=== PATIENT | male | born 1955 | race Caucasian/White ===

== ENCOUNTER 2020-10-06 14:52 | Outpatient (CLI) | payer MEDICARE, SELFPAY ==
--- NOTE | ~2020-10-06 | XR_ITS ---
XR hip RT min 2V 10/06/2020 15:11 Indication: Right hip pain Procedure: 3 views right hip Comparison: No prior studies for comparison. Findings: No fracture, subluxation or dislocation. Pelvic rings are grossly intact. Sacral foramen ar e symmetric. No significant soft tissue abnormality. No foreign bodies. Impression: 1: No acute bone or joint abnormality. Reviewed, dictated and finalized at location B. Impression: 1: No acute bone or joint abnormality.
== END 2020-10-06 14:53 | disposition home or self-care (01) ==
LOC: ANHIMG 15:00
PROVIDERS: PCP Family Medicine; Visit Provider Nurse Practitioner Family
DX: M25.551 Pain in right hip (principal)
CPT/HCPCS: 73502

== ENCOUNTER 2021-06-11 11:31 | Outpatient (CLI) | payer MEDICARE, SELFPAY ==
--- NOTE | ~2021-06-11 | CT_ITS ---
EXAMINATION: CT cervical spine wo con DATE: 06/11/2021 12:14 INDICATION: Cervicalgia. Polyneuropathy. TECHNIQUE: Computed tomography (CT) of the cervical spine was performed without intravenous contrast. Automated exposure control and iterative reconstruction technique were employed. The dose-length pro duct was 507.41 mGy-cm. COMPARISON: Cervical spine MR dated 12/22/04. FINDINGS: Alignment is normal. Vertebral body heights are normal. No fracture. There are Schmorl's nodes along the endplates at the C5-C6 and C6-C7 disc spaces. Moderate disc height loss at C5-C6 and C6-C7 and mi ld disc height loss at C4-C5, C7-T1 and T1-T2. This has progressed since the prior study. Cervical so ft tissues are unremarkable. Visualized airway and apices of the lungs are clear. The following disc levels are specifically discussed: C2-C3: There is mild bilateral uncovertebral joint osteoarthritis. There is mild right and moderate left facet joint osteoarthritis. There is no neural foraminal stenosis. There is no central canal milagros nosis. C3-C4: Disc is bulging. There is mild left and minimal right uncovertebral joint osteoarthritis. Ther e is moderate bilateral facet joint osteoarthritis. There is mild bilateral neural foraminal stenosis . There is mild central canal stenosis. C4-C5: Disc is bulging. There is mild bilateral uncovertebral joint osteoarthritis. There is moderate bilateral facet joint osteoarthritis. There is mild right neural foraminal stenosis. There is mild c entral canal stenosis. C5-C6: Disc is bulging and small amount of heterotopic ossification along the posterior longitudinal ligament. There is moderate bilateral uncovertebral joint osteoarthritis. There is left and severe ri ght facet joint osteoarthritis. There is old right neural foraminal stenosis. There is mild central c anal stenosis. C6-C7: Posterior disc osteophyte complex. There is moderate bilateral uncovertebral joint osteoarthri tis. There is moderate left and severe right facet joint osteoarthritis. There is mild bilateral neur al foraminal stenosis. There is mild central canal stenosis. C7-T1: There is mild bilateral uncovertebral joint osteoarthritis. There is severe bilateral facet cezar int osteoarthritis. There is no neural foraminal stenosis. There is no central canal stenosis. IMPRESSION: 1. Moderate cervical spondylosis. Reviewed, dictated and finalized at location A. 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
== END 2021-06-11 11:32 | disposition home or self-care (01) ==
LOC: ANHIMG 11:41
PROVIDERS: PCP Family Medicine; Visit Provider Nurse Practitioner Adult Health
DX: M47.892 Other spondylosis, cervical region (principal)
CPT/HCPCS: 72125

== ENCOUNTER 2021-06-20 10:27 | Emergency (ER) | payer MEDICARE, SELFPAY ==
[2021-06-20 11:12] VITALS: BP 145/75; PULSE 63; RESP 18; TEMP 36.7; O2SAT 98
--- NOTE | 2021-06-20 12:06 | ED.GENADULT ---
HPI - General Adult General Chief complaint: Extremity Injury, Upper Stated complaint: bilateral arm pain Time Seen by Provider: 06/20/21 11:37 Source: patient and RN notes reviewed Mode of arrival: ambulatory Limitations: no limitations History of Present Illness HPI narrative: Patient presents today complaining of bilateral shoulder pain since May 2020. Reports that this pain started after he received his first COVID-19 injection in his left upper arm. States his pain radiates up to his neck and down his arms. Pain was intermittent, but is now pretty constant. He had a CT scan of his, head and chest area 2 weeks ago, but is not yet have the results. He has an appointment in 2 days with his PCP for the results and to follow-up. He currently rates his pain 11/25. Patient does take Dupree 3 times daily as needed for his pain, but these medications have been prescribed from previous packs treatments. He also takes ibuprofen. These medications have not been helpful for this arm and shoulder pain. He has also tried muscle relaxers as well without relief. [facility] to [facility] today seeing if there was anything else we could do for him until he could see his doctor in a couple of days. MD complaint: Bilateral shoulder pain Related Data Home Medications Medication Instructions Recorded Confirmed allopurinol 300 mg PO DAILY 02/20/19 06/20/21 ascorbic acid (vitamin C) [Vitamin 1 g PO DAILY 02/20/19 06/20/21 C] aspirin [Adult Low Dose Aspirin] 81 mg PO DAILY 02/20/19 06/20/21 hydrocodone-acetaminophen 1 tablet PO Q4-6H PRN 02/20/19 06/20/21 lisinopril 40 mg PO DAILY 02/20/19 06/20/21 metoprolol tartrate 100 mg PO BID 02/20/19 06/20/21 simvastatin 20 mg PO DAILY 02/20/19 06/20/21 amlodipine 10 mg PO DAILY 06/20/21 06/20/21 duloxetine 30 mg PO DAILY 06/20/21 06/20/21 ergocalciferol (vitamin D2) 1,250 mcg PO DAILY 06/20/21 06/20/21 hydrochlorothiazide 25 mg PO DAILY 06/20/21 06/20/21 Allergies Allergy/AdvReac Type Severity Reaction Status Date / Time gabapentin Allergy Unknown unknown Verified 06/20/21 11:29 tetanus toxoid, adsorbed Allergy Unknown DIFFICULTY Verified 06/20/21 11:29 BREATHING Tetanus Vaccines and Toxoid Allergy Unknown Verified 06/20/21 11:29 Review of Systems Review of Systems: CONSTITUTIONAL: Denies body aches, fever, chills, or sweats. EYES: Denies visual changes, redness, or discharge. ENT: Denies rhinorrhea, congestion, sore throat, or otalgia. CARDIOVASCULAR: Denies chest pain, palpitations, or edema. RESPIRATORY: Denies cough or dyspnea. GASTROINTESTINAL: Denies abdominal pain, nausea, vomiting, or diarrhea. GENITOURINARY: Denies dysuria or hematuria. SKIN: Denies rash, itching, or wounds. MUSCULOSKELETAL: Denies back pain. + Bilateral shoulder, neck, and arm pain. NEUROLOGIC: Denies headache, numbness, tingling, or weakness. PSYCH: Denies depression or anxiety. [facility] Past Medical History Medical History (Updated 06/20/21 @ 14:50 by Maria E Blanca, SILAS, BC) Degenerative disc disease High cholesterol Hypertension Surgical History Surgical History (Updated 06/20/21 @ 14:50 by Maria E Blanca, SILAS, BC) History of back surgery Family History Family History Other Diabetes mellitus Family history of allergic disorder Family history of arthritis Family history of cardiovascular disease Family history of chronic obstructive pulmonary disease Family history of mental disorder Family history of type 2 diabetes mellitus Hypertension Social History Social History Smoking status: Never smoker Alcohol intake: never Comments At time of signature, I have reviewed and agree with nursing past medical, surgical, social and family history unless otherwise noted. Please see nursing chart for further information. There is no relevant family history lena
== END 2021-06-20 12:10 | disposition home or self-care (01) ==
PROVIDERS: Emergency Provider Nurse Practitioner; PCP Family Medicine
DX: G89.29 Other chronic pain (principal); M25.512 Pain in left shoulder; M25.511 Pain in right shoulder; E78.00 Pure hypercholesterolemia, unspecified; I10 Essential (primary) hypertension
CPT/HCPCS: 99212; G0463

== ENCOUNTER 2021-07-22 13:00 | Outpatient (CLI) | payer MEDICARE, SELFPAY ==
--- NOTE | ~2021-07-22 | XR_ITS ---
EXAMINATION: XR shoulder LT min 2V, XR humerus LT DATE: 07/22/2021 13:42 INDICATION: Left shoulder pain and swelling in the region of the biceps TECHNIQUE: 1. AP internally and externally rotated, AP oblique externally rotated and axillary views of the left shoulder were obtained. 2. Internal and axillary rotated views of the left humerus were obtained. COMPARISON: None FINDINGS: Normal alignment at the left shoulder and elbow. No fracture. Glenohumeral joint is normal. Moderate acromioclavicular osteoarthritis with small inferiorly directed osteophytes at the lateral head of t he clavicle. Osteoarthritis at the left elbow with moderate nonuniform joint space narrowing and smal l marginal osteophytes. Heterotopic ossicle along the medial epicondyle of the distal humerus suggest lico of chronic enthesopathy or trauma to the common flexor tendon wad. Soft tissues are unremarkable. IMPRESSION: 1. 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 No acute osseous abnormali ty. 2. Heterotopic ulceration about the medial epicondyle likely either degenerative enthesopathy or sequ nikita of old trauma to the proximal common flexor tendon wad. Reviewed, dictated and finalized at location B. IMPRESSION: 1. 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 No a cute osseous abnormality. 2. Heterotopic ulceration about the medial epicondyle likely either degenerativ e enthesopathy or sequela of old trauma to the proximal common flexor tendon wa d.
== END 2021-07-22 13:01 | disposition home or self-care (01) ==
PROVIDERS: PCP Family Medicine; Visit Provider Nurse Practitioner Adult Health
DX: M19.012 Primary osteoarthritis, left shoulder (principal); M19.022 Primary osteoarthritis, left elbow
CPT/HCPCS: 73030; 73060

== ENCOUNTER 2021-07-25 14:00 | Emergency (ER) | payer MEDICARE, SELFPAY ==
--- NOTE | ~2021-07-25 | XR_ITS ---
EXAM: XR hand RT min 3V HISTORY: hand vs powerwasher COMPARISON: None available FINDINGS: Slightly decreased mineralization. No fracture or dislocation. Scattered degenerative langston ges. No subcutaneous emphysema or radiopaque foreign body. IMPRESSION: No acute finding in the right hand. Reviewed, dictated and finalized at location K.
--- NOTE | ~2021-07-25 | XR_ITS ---
EXAM: XR forearm RT 2V HISTORY: RUE vs. powerwasher, pain in forearm COMPARISON: None available FINDINGS: Slightly decreased mineralization. No fracture or dislocation. Degenerative changes in the elbow. No radiopaque foreign body. No subcutaneous emphysema. IMPRESSION: No acute finding in the right forearm. Reviewed, dictated and finalized at location K.
[2021-07-25 14:02] VITALS: BP 145/77; PULSE 68; RESP 18; TEMP 36.7; O2SAT 98
--- NOTE | 2021-07-25 14:11 | ED.UPPEXIN ---
HPI - Extremity Injury (Upper) General Chief Complaint: Extremity Injury, Upper Stated Complaint: right hand injury Time Seen by Provider: 07/25/21 14:02 Source: patient Mode of arrival: ambulatory Limitations: no limitations History of Present Illness HPI narrative: Patient is a 66 y/o male who presents to the ED with report of R hand injury. Patient reports he was getting ready to power wash his deck today. He attempted to connect the hosing to the metal wand when the tubing connection at the power electronics engineerbobbin washer broke loose. The tubing and water shot back hitting the patient in his right hand. He states he was hit more by the tubing than the direct pressurized water. Patient sustained 2 large skin tears to his R hand and a smaller skin tear to his R forearm. He has since developed swelling to his R hand, overlying the webspace between 1st/2nd fingers. Denies any weakness, numbness/tingling. Patient has an allergy to tetanus vaccine. He reports he experienced hives and difficulty breathing after receiving a tetanus vaccine 35 years ago. Patient takes ASA 81mg daily. No other blood thinners. Related Data Home Medications Medication Instructions Recorded Confirmed allopurinol 300 mg PO DAILY 02/20/19 06/20/21 ascorbic acid (vitamin C) [Vitamin 1 g PO DAILY 02/20/19 06/20/21 C] aspirin [Adult Low Dose Aspirin] 81 mg PO DAILY 02/20/19 06/20/21 hydrocodone-acetaminophen 1 tablet PO Q4-6H PRN 02/20/19 06/20/21 lisinopril 40 mg PO DAILY 02/20/19 06/20/21 metoprolol tartrate 100 mg PO BID 02/20/19 06/20/21 simvastatin 20 mg PO DAILY 02/20/19 06/20/21 amlodipine 10 mg PO DAILY 06/20/21 06/20/21 duloxetine 30 mg PO DAILY 06/20/21 06/20/21 ergocalciferol (vitamin D2) 1,250 mcg PO DAILY 06/20/21 06/20/21 hydrochlorothiazide 25 mg PO DAILY 06/20/21 06/20/21 Allergies Allergy/AdvReac Type Severity Reaction Status Date / Time gabapentin Allergy Unknown unknown Verified 07/25/21 14:13 tetanus toxoid, adsorbed Allergy Unknown DIFFICULTY Verified 07/25/21 14:13 BREATHING Tetanus Vaccines and Toxoid Allergy Unknown Unknown Verified 07/25/21 14:13 Review of Systems Review of Systems: CONSTITUTIONAL: Denies fever. SKIN: Reports skin tears to R hand/forearm. MUSCULOSKELETAL: Reports R hand/forearm pain and swelling. NEUROLOGIC: Denies numbness, or weakness. All systems reviewed & are unremarkable except as noted in HPI and below PMFSH Past Medical History Medical History Degenerative disc disease High cholesterol Hypertension Surgical History Surgical History History of back surgery Family History Family History Other Diabetes mellitus Family history of allergic disorder Family history of arthritis Family history of cardiovascular disease Family history of chronic obstructive pulmonary disease Family history of mental disorder Family history of type 2 diabetes mellitus Hypertension Social History Social History Smoking status: Never smoker Alcohol intake: never Exam Narrative: GENERAL: Well appearing, well-nourished, non-toxic, in no acute distress. HEAD: Normocephalic, atraumatic. NECK: Supple. No adenopathy, no masses. RESPIRATORY: Airway patent, respirations nonlabored. Clear to auscultation bilaterally, no rales, rhonchi, wheezing. CARDIOVASCULAR: Regular rate and rhythm without murmurs, rubs, or gallops. Radial pulses 2+ and equal bilaterally. MUSCULOSKELETAL: Moves all extremities. Tense area of swelling to dorsal R hand over webspace between 1st and 2nd digits. Tenderness to palpation of R distal forearm/R dorsal hand. Sensation intact to R hand and fingers. SKIN: Warm, dry. 2 large skin tears to dorsal R hand with areas of avulsed skin. Small linear skin tear to R forearm, a few cm from
== END 2021-07-25 15:34 | disposition home or self-care (01) ==
PROVIDERS: Emergency Provider Emergency Medicine; PCP Family Medicine
DX: S60.221A Contusion of right hand, initial encounter (principal); S61.411A Laceration without foreign body of right hand, initial encounter; S51.811A Laceration without foreign body of right forearm, initial encounter; E78.00 Pure hypercholesterolemia, unspecified; I10 Essential (primary) hypertension; W20.8XXA Other cause of strike by thrown, projected or falling object, initial encounter
CPT/HCPCS: 73090; 73130; 99283

== ENCOUNTER 2021-07-31 15:32 | Outpatient (CLI) | payer MEDICARE, SELFPAY ==
--- NOTE | ~2021-07-31 | US_ITS ---
EXAMINATION: US soft tissue UE LT DATE: 07/31/2021 16:08 INDICATION: Left upper arm mass. TECHNIQUE: Multiple grayscale and Doppler ultrasound images of the left upper limb were obtained. COMPARISON: None FINDINGS: There is no abnormal mass in left upper arm in the patient's area of concern. IMPRESSION: 1. No abnormal mass in left upper arm in the patient's area of concern. Reviewed, dictated and finalized at location A.
== END 2021-07-31 15:33 | disposition home or self-care (01) ==
PROVIDERS: PCP Family Medicine; Visit Provider Nurse Practitioner Adult Health
DX: R22.32 Localized swelling, mass and lump, left upper limb (principal)
CPT/HCPCS: 76882

== ENCOUNTER 2023-02-07 17:41 | Emergency (ER) | payer MEDICARE, SELFPAY ==
[2023-02-07 18:06] VITALS: BP 189/82; PULSE 85; RESP 18; TEMP 36.8; O2SAT 97
--- NOTE | 2023-02-07 18:26 | ED.GENADULT ---
HPI - General Adult General Chief complaint: Extremity Problem,Nontraumatic Stated complaint: bilateral swelling lower extremity Time Seen by Provider: 02/07/23 18:12 Source: patient and RN notes reviewed Mode of arrival: ambulatory Limitations: no limitations History of Present Illness HPI narrative: Patient presents today complaining of swelling to the bilateral lower legs and feet times 10 days. Denies shortness of breath, chest pain, cough. States he tried to call his doctor's office last Tuesday, but is waiting to hear back from them. Reports that he was taking sulfasalazine for the past couple of months but stopped taking it right at onset of symptoms. Believes this may be the cause of his symptoms. Related Data Home Medications Medication Instructions Recorded Confirmed allopurinol 300 mg tablet 300 mg PO DAILY 02/20/19 10/29/21 ascorbic acid (vitamin C) 1,000 mg 1 g PO DAILY 02/20/19 10/29/21 tablet (Vitamin C) aspirin 81 mg tablet,delayed 81 mg PO DAILY 02/20/19 10/29/21 release (Adult Low Dose Aspirin) hydrocodone 10 mg-acetaminophen 1 tablet PO Q4-6H PRN Pain 02/20/19 10/29/21 325 mg tablet lisinopril 40 mg tablet 40 mg PO DAILY 02/20/19 10/29/21 metoprolol tartrate 100 mg tablet 100 mg PO BID 02/20/19 10/29/21 simvastatin 20 mg tablet 20 mg PO DAILY 02/20/19 10/29/21 amlodipine 10 mg tablet 10 mg PO DAILY 06/20/21 10/29/21 duloxetine 30 mg capsule,delayed 30 mg PO DAILY 06/20/21 10/29/21 release ergocalciferol (vitamin D2) 1,250 1,250 mcg PO DAILY 06/20/21 10/29/21 mcg (50,000 unit) capsule hydrochlorothiazide 25 mg tablet 25 mg PO DAILY 06/20/21 10/29/21 Allergies Allergy/AdvReac Type Severity Reaction Status Date / Time gabapentin Allergy Unknown unknown Verified 07/25/21 14:13 tetanus toxoid, adsorbed Allergy Unknown DIFFICULTY Verified 07/25/21 14:13 BREATHING Tetanus Vaccines and Toxoid Allergy Unknown Unknown Verified 07/25/21 14:13 Review of Systems Review of Systems: CONSTITUTIONAL: Denies body aches, fever, chills, or sweats. EYES: Denies visual changes, redness, or discharge. ENT: Denies rhinorrhea, congestion, sore throat, or otalgia. CARDIOVASCULAR: Denies chest pain, palpitations, or edema. RESPIRATORY: Denies cough or dyspnea. GASTROINTESTINAL: Denies abdominal pain, nausea, vomiting, or diarrhea. GENITOURINARY: Denies dysuria or hematuria. SKIN: Denies rash, itching, or wounds. MUSCULOSKELETAL: Bilateral lower leg and foot edema NEUROLOGIC: Denies headache, numbness, tingling, or weakness. PSYCH: Denies depression or anxiety. [facility] Past Medical History Medical History Degenerative disc disease High cholesterol Hypertension Kidney stones CORY (obstructive sleep apnea) Surgical complication Surgical History Surgical History History of back surgery History of knee surgery Family History Family History Other Diabetes mellitus Family history of allergic disorder Family history of arthritis Family history of cardiovascular disease Family history of chronic obstructive pulmonary disease Family history of mental disorder Family history of type 2 diabetes mellitus Hypertension Social History Social History Smoking status: Never smoker Alcohol intake: never Comments At time of signature, I have reviewed and agree with nursing past medical, surgical, social and family history unless otherwise noted. Please see nursing chart for further information. There is no relevant family history pertinent to the presenting complaint Exam Narrative: GENERAL: Well-appearing, well-nourished, and in no acute distress. HEAD: Normocephalic, atraumatic. EYES: EOMI. No redness or drainage. Conjunctivae normal. ENT: Muco
== END 2023-02-07 18:31 | disposition home or self-care (01) ==
PROVIDERS: Emergency Provider Nurse Practitioner; PCP Family Medicine
DX: R60.0 Localized edema (principal); E78.00 Pure hypercholesterolemia, unspecified; I10 Essential (primary) hypertension; Z79.82 Long term (current) use of aspirin
CPT/HCPCS: 99211; G0463

== ENCOUNTER 2023-06-27 17:43 | Emergency (ER) | payer MEDICARE, SELFPAY ==
--- NOTE | ~2023-06-27 | XR_ITS ---
EXAMINATION: XR chest 2V Exam Date/Time: 06/27/2023 18:19 CDT HISTORY: chest pain Comparison: 04/20/2016. RESULT: Lines, tubes, and devices: None. Lungs and pleura: Senescent changes. Streaky bibasilar opacities likely atelectasis and/or scar. Cardiomediastinal silhouette: Stable. Other: No acute osseous or upper abdominal finding. IMPRESSION: No acute cardiopulmonary process. Reviewed, dictated and finalized at location K.
--- NOTE | 2023-06-27 17:48 | ECG_ITS ---
Measurements Intervals [place] Rate: 72 P: -9 SC: 174 QRS: -45 QRSD: 126 T: 54 QT: 362 QTc: 399 Interpretive Statements SINUS RHYTHM LEFT AXIS DEVIATION INTRAVENTRICULAR CONDUCTION DELAY LEFT VENTRICULAR HYPERTROPHY WITH ST-T CHANGE ANTEROSEPTAL INFARCT, AGE INDETERMINATE BASELINE ARTIFACT- I, III, AVR, AVL ABNORMAL ECG NO PREVIOUS ECG AVAILABLE FOR COMPARISON Electronically Signed On 06-27-2023 20:07:05 CDT by Fernando Lee D.O.
[2023-06-27 17:54] VITALS: BP 175/100; PULSE 70; RESP 18; TEMP 36.7; O2SAT 96
[2023-06-27 18:12] LABS: Basophils Absolute Auto 0.1 K/mm3 (0.0-0.1); Basophils Percent Auto 0.4 % (0.2-1.2); Eosinophils Absolute Auto 0.1 K/mm3 (0-0.3); Eosinophils Percent Auto 0.6 % (0-4.4); Hemoglobin 15.2 g/dL (14.0-18.0); Immature Granulocyte Absolute 0.05 K/mm3 (0.00-0.031); Immature Granulocyte Percent A 0.4 % (0-0.5); Lymphocytes Absolute Auto 1.92 K/mm3 (0.9-3.2); Lymphocytes Percent Auto 16.4 % (18.3-44.2); Mean Corpuscular HGB Conc 33.8 g/dl (32-36); Mean Corpuscular Hemoglobin 32.3 pg (26-34); Mean Corpuscular Volume 95.5 fl (80-100); Mean Platelet Volume 9.1 fl (7.4-10.4); Monocytes Absolute Auto 0.7 K/mm3 (0.1-0.6); Monocytes Percent Auto 5.6 % (2.6-8.5); Neutrophils Percent Auto 76.6 % (45.5-73.1); Platelet Count Result 289 k/mm3 (150-375); Red Blood Count 4.71 M/mm3 (4.6-6.20); Red Cell Distribution Width 13.3 % (11.5-14.5); White Blood Count 11.7 K/mm3 (4.5-10.0)
[2023-06-27 18:21] LABS: Prothrombin Time 13.5 Seconds (11.1-14.7)
[2023-06-27 18:31] LABS: Alanine Aminotransferase 20 U/L (6-50); Albumin Level 4.5 g/dL (3.5-5.1); Alkaline Phosphatase 91 U/L (38-126); Anion Gap 8 mmol/L (8-16); Aspartate Amino Transferase 21 U/L (17-59); Bilirubin,Total 1.1 mg/dL (0.2-1.3); Blood Urea Nitrogen 30 mg/dL (9-20); Carbon Dioxide 23 mmol/L (22-30); Chloride 106 mmol/L (98-107); Estimated CRCL calculation 66 ml/min; Estimated Glomerular Filt Rate 55; Glucose 129 mg/dL (65-110); Lipase 93 U/L (23-300); Potassium 4.2 mmol/L (3.4-5.0); Sodium 137 mmol/L (137-145)
[2023-06-27] MEDS: ASPIRIN 81 MG CHEWABLE TABLET 324 MG PO (18:33)
[2023-06-27 18:41] LABS: Troponin I < 0.012 ng/mL (0.000-0.034)
[2023-06-27 20:45] LABS: NT Pro B Type Natriuretic Pept 608 pg/mL (19.9-100)
--- NOTE | 2023-06-27 20:59 | ED.GENADULT ---
HPI - General Adult General Chief complaint: Chest Pain Stated complaint: chest pain Time Seen by Provider: 06/27/23 19:07 History of Present Illness HPI narrative: patient is 68-year-old gentleman presents emergency department with chief complaint of chest pain. Patient reports that on Tuesday he had an episode of pain in the right side of his chest. The patient states the pain went away it is also reported that he has had several other episodes that have been very shortly lived of discomfort in the right side of his chest. Patient reports no shortness of breath denies diaphoresis reports no prior cardiac history. The patient reports that he talk to his primary care provider today that told him to come to the emergency department. The patient reports that today release not had any significant episodes of chest pain Related Data Home Medications Medication Instructions Recorded Confirmed allopurinol 300 mg tablet 300 mg PO DAILY 02/20/19 10/29/21 ascorbic acid (vitamin C) 1,000 mg 1 g PO DAILY 02/20/19 10/29/21 tablet (Vitamin C) aspirin 81 mg tablet,delayed 81 mg PO DAILY 02/20/19 10/29/21 release (Adult Low Dose Aspirin) hydrocodone 10 mg-acetaminophen 1 tablet PO Q4-6H PRN Pain 02/20/19 10/29/21 325 mg tablet lisinopril 40 mg tablet 40 mg PO DAILY 02/20/19 10/29/21 metoprolol tartrate 100 mg tablet 100 mg PO BID 02/20/19 10/29/21 simvastatin 20 mg tablet 20 mg PO DAILY 02/20/19 10/29/21 amlodipine 10 mg tablet 10 mg PO DAILY 06/20/21 10/29/21 duloxetine 30 mg capsule,delayed 30 mg PO DAILY 06/20/21 10/29/21 release ergocalciferol (vitamin D2) 1,250 1,250 mcg PO DAILY 06/20/21 10/29/21 mcg (50,000 unit) capsule hydrochlorothiazide 25 mg tablet 25 mg PO DAILY 06/20/21 10/29/21 Allergies Allergy/AdvReac Type Severity Reaction Status Date / Time gabapentin Allergy Unknown unknown Verified 07/25/21 14:13 tetanus toxoid, adsorbed Allergy Unknown DIFFICULTY Verified 07/25/21 14:13 BREATHING Tetanus Vaccines and Toxoid Allergy Unknown Unknown Verified 07/25/21 14:13 Review of Systems Review of Systems: A 10 system review of systems was completed on the patient and is negative except for what is stated in the HPI. Nursing and ancillary documentation was reviewed. PMFSH Past Medical History Medical History Degenerative disc disease High cholesterol Hypertension Kidney stones CORY (obstructive sleep apnea) Surgical complication Surgical History Surgical History History of back surgery History of knee surgery Family History Family History Other Diabetes mellitus Family history of allergic disorder Family history of arthritis Family history of cardiovascular disease Family history of chronic obstructive pulmonary disease Family history of mental disorder Family history of type 2 diabetes mellitus Hypertension Social History Social History Smoking status: Never smoker Alcohol intake: never Exam Narrative: GENERAL: Well-appearing, well-nourished, and in no acute distress. HEAD: Normocephalic, atraumatic. EYES: PERRLA and EOMI. ENT: Nares clear, no rhinorrhea or epistaxis. Mucous membranes moist. NECK: Supple. CHEST: Clear to auscultation. No respiratory distress. HEART: Regular rate and rhythm. No murmur heard. Normal peripheral pulses. ABDOMEN: Soft, nontender, nondistended, normal active bowel sounds. EXTREMITIES: Normal range of motion. No edema. SKIN: Warm, dry, no rash. NEURO: No focal deficits. Alert and oriented x3. PSYCH: Normal mood and affect. Course Vital Signs Vital signs: Vital Signs Temperature 36.7 C 06/27/23 17:54 Pulse Rate 70 06/27/23 17:54 Respiratory Rate 18 06/27/23 17:54 Blood
[2023-06-27 21:34] LABS: Troponin I < 0.012 ng/mL (0.000-0.034)
[2023-06-27 22:01] VITALS: BP 162/98; PULSE 87; RESP 15; O2SAT 100
== END 2023-06-27 22:05 | disposition home or self-care (01) ==
PROVIDERS: Emergency Medicine; Emergency Provider Emergency Medicine; PCP Family Medicine
DX: R07.89 Other chest pain (principal); E78.00 Pure hypercholesterolemia, unspecified; G47.33 Obstructive sleep apnea (adult) (pediatric); Z87.442 Personal history of urinary calculi; Z79.82 Long term (current) use of aspirin
CPT/HCPCS: 36415; 71046; 80053; 83690; 83880; 84484; 85025; 85610; 85730; 93005; 99284; A9270

== ENCOUNTER 2024-05-28 07:13 | Outpatient (CLI) | payer MEDICARE, SELFPAY ==
--- NOTE | ~2024-05-28 | US_ITS ---
EXAMINATION: US carotid duplex BI DATE: 05/28/2024 07:57 INDICATION: Syncope. TECHNIQUE: Grayscale, color Doppler, and pulsed Doppler images of the cervical carotid arteries were obtained. The degree of vessel stenosis is placed in one of the following categories: normal, <50%, 5 0-69%, >=70% but less than near-occlusion, near-occlusion, or total occlusion. Note that percent sten osis relative to normal distal artery lumen diameter is indirectly measured from velocity measurement s as described by Luis A, et al. Radiology 2003; 229:340-346. COMPARISON: None. FINDINGS: RIGHT: The right common carotid artery (CCA) peak systolic velocity (PSV) is 82 cm/s. The right internal car otid artery (ICA) PSV is 85 cm/s. The right ICA end-diastolic velocity (EDV) is 65 cm/s. The right IC A/CCA PSV ratio is 1.0. Grayscale and color Doppler images yield an estimate of <50% diameter reducti on from plaque in the ICA. There is antegrade flow in the right vertebral artery. LEFT: The left CCA PSV is 89 cm/s. The left ICA PSV is 87 cm/s. The left ICA EDV is 41 cm/s. The left ICA/C CA PSV ratio is 1.0. Grayscale and color Doppler images yield an estimate of <50% diameter reduction from plaque in the ICA. There is antegrade flow in the left vertebral artery. IMPRESSION: 1. <50% stenosis in the right internal carotid artery. 2. <50% stenosis in the left internal carotid artery. Reviewed, dictated and finalized at location A. ING SUPERVISOR
--- OUTSIDE RECORDS SUMMARY | 2024-05-28 07:15 | XMS_ITS | Clinical Summary ---
Author Organization [facility] Address [address] [place] [id number] Care Team Providers Care Transport Engineer Name Role Phone Gerardo Whalen MD Primary Care Provider [phone] Social History Tobacco Use Types Packs/Day Years Used Date Smoking Tobacco: Never Assessed Sex and Gender Information Value Date Recorded Sex Assigned at Not on file Legal Sex Male 7:35 PM CDT Gender Identity Not on file Sexual Orientation Not on file Plan of Treatment Health Maintenance Due Date Last Done Comments Colorectal Cancer Screening Colonoscopy (10 Years) 1953 Hepatitis C 1971 DTaP, Tdap and Td Vaccines ( 1 - Tdap) 1972 Zoster Vaccines (1 of 2) 2003 Annual Medicare Wellness Visit 2018 Pneumococcal Vaccine: 65+ Years (1 of 1 - PCV) 2018 COVID-19 Vaccine (4 - 2023-2 5 season) 2023 03/06/2021, 07/08/2020, 05/29/2020 Influenza Adult (#1) 2024 RSV Immunization or 60+ Years (1 - 1-dose 75+ series) 2028 Meningococcal B Vaccine Aged Out No l onger eligible based on patient's age to complete this topic Meningococcal Vaccine Aged Out No daniel giovana eligible based on patient's age to complete this topic RSV Immunizations Under 20 Months Aged Out No longer eligible b ased on patient's age to complete this topic Insurance [facility] Care Teams Transport Engineer Relationship Specialty Start Date End Date Gerardo Whalen MD [id number] [place] [address] PCP - General FAMILY PRACTICE 08/03/21
--- OUTSIDE RECORDS SUMMARY | 2024-05-28 07:16 | XMS_ITS | Clinical Summary ---
Author Organization [facility] Address [address] [place] [id number] Care Team Providers Care Pbx Inspector Name Role Phone Gerardo Whalen MD Primary Care Provider [phone] Allergies Active Allergy Reactions Criticality Noted Date Comments Tetanus Vaccines And Toxoid Other (See comments) Reaction: Other, Medications allopurinoL (ZYLOPRIM) 300 mg tablet Take 300 mg by mouth daily 7 Active amLODIPine (NORVASC) 10 mg tablet Take 10 mg by mouth daily [address] (CYMBALTA) 30 mg capsule Take 30 mg by mouth daily Active ergocalciferol (VITAMIN D) 50,000 unit capsule Take 50,000 Units by mouth daily Active hydroCHLOROthia zide (HYDRODIURIL) 25 mg tablet Take 25 mg by mouth daily Active HYDROcodone-alexys taminophen (NORCO) 10-325 mg per tablet Take 10-325 tablets by mouth as needed Active ibuprofen (ADVIL,MOTRIN) 600 mg tablet Take 600 mg by mouth Medrol Dose Pack scheduling ONLY Active lisinopriL (PRINIVIL,ZESTR IL) 40 mg tablet Take 40 mg by mouth daily 2 Active SUMAtriptan (IMITREX) 50 mg tablet Take 50 mg by mouth daily Active simvastatin (ZOCOR) 20 mg tablet Take 20 mg by mouth daily 7 Active metoprolol (LOPRESSOR) 100 mg tablet Take 100 mg by mouth 2 (two) times a day 2 Active traMADoL (ULTRAM) 50 mg tablet Take 50 mg by mouth daily 2 Active cyclobenzaprine (FLEXERIL) 10 mg tablet Take 1 tablet (10 mg total) by mouth 3 (three) times a day as needed for muscle spasms for up to 15 days 45 tablet 2 Active cephalexin (KEFLEX) 500 mg capsule 2 Active zolpidem CR (AMBIEN CR) 6.25 mg CR tablet TAKE 1 TABLET BY MOUTH ONCE DAILY AT BEDTIME FOR INSOMNIA DUE TO PAIN 2 Active gabapentin (NEURONTIN) 600 mg tabletIndicatio ns:Neuropathic Pain Take 1 tablet (600 mg total) by mouth 3 (three) times a day 90 tablet 2 Active Active Problems Problem Noted Date Diagnosed Date Hyperlipidemia 07/24/2021 Hypertensive disorder 07/24/2021 Kidney stone 07/24/2021 Lumbago 04/04/2017 Degeneration of intervertebral disc of lumbosacr al region 04/04/2017 Skin neoplasm 04/03/2014 Infectious warts 04/03/2014 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 Surgical History Surgery Date Site/Laterality Comments BACK SURGERY 04/18/1990 - 04/17/1991 Back Surgery - (Added by TW Conv) Medical History Medical History Date Comments Personal history of other di seases of the musculoskeletal system and connective tissue History of arthritis - (Adde d by TW Conv) Personal history of other di seases of the circulatory system History of hypertension - (A dded by TW Conv) Personal history of other di seases of urinary system History of kidney disease - (Added by TW Conv) Personal history of urinary calculi History of renal calculi - (Added by TW Conv) Personal history of other di seases of the musculoskeletal system and connective tissue History of osteoarthritis - (Added by TW Conv) Depression Hypertension Arthritis Anxiety Depression Headache Weakness Family History Medical History Relation Name Comments Heart disease Brother 1 Family history of cardiac disorder - (Added by TW Conv) Anxiety disorder Brother 2 Anxiety - ( Added by TW Conv) Dementia Father Family history of dementia - (Added by TW Conv) Diabetes Father Family history of diabetes mellitus - (Added by TW Conv) Heart disease Mother Family history of cardiac disorder - (Added by TW Conv) Cancer Sister Family history of malignant neoplasm - (Added by TW Conv) Relation Name Status Comments Brother 1 Brother 2 Father Mother Sister Social History Tobacco Use Types Packs/Day Years Used Date Smoking Tobacco: Never Smokeless Tobacco: Never Tobacco Cessation:Counseling Given: No AUDIT-C Answer Date Recorded Q1: How often do you have a drink containing alcohol? Never 11/18/2021 Q2: How many drinks containi ng alcohol do you have on a typical day when you are drinking? Patient does not drink Q3: How often do you have si x or more drinks on one occasion? 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 Gender Identity Not on file Sexual Orientation Not on file Occupation Industry Job Start Date Job End Date Retired Not on file Not on file Not on file Obstetrics History Last Filed Vital Signs Vital Sign Reading Time Taken Comments Blood Pressure 123/79 11/18/2021 10:51 AM CDT Pulse 62 11/18/2021 10:51 AM CDT Temperature 36.2 C (97.1 F) 11/06/2021 10:59 AM CDT Respiratory Rate 18 11/06/2021 12:05 PM CDT Oxygen Saturation 96% 11/06/2021 12:05 PM CDT Inhaled Oxygen Concentration - - Weight 140.6 kg (310 lb) 12/18/2021 1:44 PM CDT Height 177.8 cm (5' 10 ) 12/18/2021 1:44 PM CDT Body Mass Index 44.48 12/18/2021 1:44 PM CDT Plan of Treatment Health Maintenance Due Date Last Done Comments Colon Cancer Screening-Colonoscopy 1955 Depression Screening 1955 Hepatitis C Screening 1955 DTaP/Tdap/Td Vaccine (1 - Tdap) 1964 Hepatitis B Screening 1971 Zoster Vaccine (1 of 2) 2003 Abdominal Aortic Aneurysm (A AA) Screen 2018 Pneumococcal vaccine 65+ (1 of 1 - PCV) 2018 Well Visit 65+ 2018 Fall Risk Assessment 10/16/2022 10/16/2021 Covid-19 Vaccine ( season) 2023 03/06/2021, 07/08/2020, 05/29/2020 Influenza Vaccine (#1) 2023 Goals Goal Patient Goal Type Associated Problems Recent Progress Patient-Stated? Author CCM Chronic Pain Care Plan Chronic Care Management Nesha Han RN Note: Problem: Chronic Pain Goals: 1. Minimize further functional decline 2. Maximize quality of life 3. Control pain Strategies: - Activity/exercise program recommendation - Conservative stepwise pain medicine strategy with multi-disciplinary approach - Recommend healthy lifestyle strategies and compensatory methods as needed Medical Devices Implanted Type Area Buffing Machine Operator Device Identifier Shelf Expiration Date Model / Serial / Lot Metal Fragments Left: Forearm Insurance [facility] HMO REF [facility] MEDICARE Address: [facility] [address] [phone] [facility] HMO RE[facility] Address: [facility] [address] [place] [address] MEDICARE SOLUT[facility]ICARE Address: [address] [address] [place] [address] [facility] MDCR HMO REF [facility] MEDICARE Address: [facility] [address] [place] [address] Care Teams Pbx Inspector Relationship Specialty Start Date End Date Gerardo Whalen MD PCP - General 04/04/17
--- OUTSIDE RECORDS SUMMARY | 2024-05-28 07:16 | XMS_ITS | Referral Summary ---
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 Gender Identity Not on file Sexual Orientation Not on file Occupation Industry Job Start Date Job End Date Retired Not on file Not on file Not on file Last Filed Vital Signs Vital Sign Reading [...] 12/18/2021 1:44 PM CDT Plan of Treatment Not on file Goals Goal Patient Goal Type Associated Problems [...] as needed Medical Devices Implanted Type Area Inker Machine Device Identifier Shelf Expiration Date Model / Serial / Lot Metal Fragments Left: Forearm Insurance [facility] MEDIC[facility] Address: [facility] [address] [place] [address] [facility] Address: [address] [address] [place] [address] MEDICARE SOL[facility] MEDIC[facility] Address: [address] [address] [place] [address] [facility] MDCR HMO RE[facility] MED[facility] Address: [address] [address] [place] [address] Care Teams Massotherapist Relationship Specialty Start Date End Date Gerardo Whalen MD PCP - General 04/04/17
--- OUTSIDE RECORDS SUMMARY | 2024-05-28 07:16 | XMS_ITS | Clinical Summary ---
Author Organization [facility] Address [address] [place] [address] Phone Care Team Providers Care Wet Roaster Name Role Phone Unavailable Primary Care Provider Unavailabl e Allergies Active Allergy Reactions Criticality Noted Date Comments Prednisone Unknown 02/05/2022 Tetanus Vaccines And Toxoid Other (See Comments) 02/05/2022 Reaction: Other, Medications HYDROcodone-alexys taminophen (NORCO) 10-325 mg Tablet Take 1 Tablet by mouth every 4 hours as needed. Active OMEGA-3 FATTY ACIDS-FISH OIL ORAL Take 1,000 mg by mouth. Active DULoxetine (CYMBALTA) 30 mg Capsule, Delayed Release(E.C.) Take 30 mg by mouth daily. Active allopurinoL (ZYLOPRIM) 300 mg tablet Take 300 mg by mouth daily. Active aspirin (ECOTRIN EC) 81 mg Tablet, Delayed Release (E.C.) Take 81 mg by mouth daily. Active ibuprofen (MOTRIN) 600 mg tablet Take 600 mg by mouth every 6 hours as needed. Active gabapentin (NEURONTIN) 600 mg tablet Take 600 mg by mouth 3 times daily. Active lisinopriL (PRINIVIL) 40 mg tablet Take 40 mg by mouth daily. Active simvastatin (ZOCOR) 20 mg tablet Take 20 mg by mouth daily with supper. Active metoprolol tartrate (LOPRESSOR) 100 mg tablet TAKE ONE TABLET TWICE DAILY BY MOUTH WITH MEALS 2 Active amLODIPine (NORVASC) 10 mg tablet amlodipine 10 mg tablet TAKE 1 TABLET BY MOUTH EVERY DAY Active Active Problems No known active problems Family History Medical History Relation Name Comments Hypertension Brother Other Brother tobacco Diabetes Father Hypertension Father Other Father tobacco Other Maternal Aunt tobacco Breast Cancer Maternal Grandmother Heart Disease Mother Hypertension Mother Other Mother tobacco Other Paternal Grandmother tabacco Heart Disease Paternal Uncle Other Paternal Uncle tobacco Cancer Sister throat cancer Other Sister tobacco Relation Name Status Comments Brother Father Maternal Aunt Maternal Grandmother Mother Paternal Grandmother Paternal Uncle Sister Social History Tobacco Use Types Packs/Day Years Used Date Smoking Tobacco: Never Tobacco Cessation:Counseling Given: Not Answered Alcohol Use Standard Drinks/Week Comments Never 0 (1 standard drink = 0.6 oz pur e alcohol) Sex and Gender Information Value Date Recorded Sex Assigned at Not on file Legal Sex Male 3:09 PM CDT Gender Identity Not on file Sexual Orientation Not on file Last Filed Vital Signs Vital Sign Reading Time Taken Comments Blood Pressure 110/82 02/05/2022 1:02 PM CDT Pulse 78 02/05/2022 1:02 PM CDT Temperature 36.6 C (97.9 F) 02/03/2022 10:39 AM CDT Respiratory Rate - - Oxygen Saturation 96% 02/05/2022 1:02 PM CDT Inhaled Oxygen Concentration - - Weight 143.8 kg (317 lb) 02/05/2022 1:02 PM CDT Height 177.8 cm (5' 10 ) 02/05/2022 1:02 PM CDT Body Mass Index 45.48 02/05/2022 1:02 PM CDT Plan of Treatment Health Maintenance Due Date Last Done Comments DTAP/TDAP/TD VACCINES (1 - Tdap) 1972 COLORECTAL SCREENING 1998 Colorectal Cancer Screening 1998 FIT-DNA Q 3 years 1998 FIT/FOBT Q 1 year 1998 Flex Sig/CT Colonography Q 5 years 1998 PNEUMOCOCCAL VACCINE 65+ YEARS (1 of 1 - PCV) 05/18/19 04 ZOSTER VACCINE (1 of 2) 2003 INFLUENZA VACCINE (#1) 2023 RSV VACCINE (60+ or ) (1 - 1-dose 75+ series) 2028 Insurance [facility] [id number]
--- OUTSIDE RECORDS SUMMARY | 2024-05-28 07:16 | XMS_ITS | Clinical Summary ---
Author Organization [facility] Address [address], [address] [address] Phone Care Team Providers Care Prop And Effects Designer Name Role Phone Gerardo Whalen MD Primary Care Provider [phone] Medications PROAIR HFA 108 (90 Base) MCG/ACT Aerosol Solution Reported on 09/22/2016 3 7 Active allopurinol (ZYLOPRIM) 300 MG Tablet TK 1 T PO QD 3 7 Active amLODIPine (NORVASC) 10 MG Tablet TK 1 T PO QD 3 7 Active cetirizine (ZYRTEC) 10 MG Tablet TK 1 T PO QD 11 7 Active cyclobenzaprine (FLEXERIL) 10 MG Tablet TK 1 T PO TID PRN 0 7 Active escitalopram (LEXAPRO) 10 MG Tablet TK 1 T PO QD 3 7 Active fenofibrate (TRICOR) 48 MG Tablet TAKE ONE TABLET BY MOUTH ONCE DAILY WITH A MEAL 1 7 Active HYDROcodone-alexys taminophen (NORCO) 7.5-325 MG Tablet TK 1 T PO Q 4 H PRF PAIN 0 7 Active ibuprofen (MOTRIN) 800 MG Tablet TK 1 T PO TID WF PRN 0 7 Active lisinopril (PRINIVIL, ZESTRIL) 40 MG Tablet TK 1 T PO QD 3 7 Active metoprolol Succinate (TOPROL-XL) 50 MG TABLET SR 24 HR TK 1 T PO QD 3 7 Active simvastatin (ZOCOR) 20 MG Tablet TK 1 T PO HS 3 7 Active tamsulosin (FLOMAX) 0.4 MG Capsule Reported on 09/22/2016 3 7 Active aspirin EC 81 MG Tablet Delayed Response Take 81 mg by mouth daily. Active Multiple Vitamins-Minera ls (MULTIVITAMIN PO) Take by mouth. Activ e hydroCHLOROthia zide 25 MG Tablet Take 25 mg by mouth daily. Reported on 09/22/2016 Active traZODone (DESYREL) 100 MG Tablet Take 100 mg by mouth nightly. Reported on 09/22/2016 Active fluticasone (FLONASE) 50 MCG/ACT Suspension 1-2 Sprays by Nasal route daily. Reported on 09/22/2016 Active beclomethasone (QVAR) 40 MCG/ACT Aerosol Solution take 1 Puff by inhalation 2 times daily. Active Social History Tobacco Use Types Packs/Day Years Used Date Smoking Tobacco: Never Alcohol Use Standard Drinks/Week Comments No 0 (1 standard drink = 0.6 oz pur e alcohol) Sex and Gender Information Value Date Recorded Sex Assigned at Not on file Legal Sex Male 12:52 PM CDT Gender Identity Not on file Sexual Orientation Not on file Last Filed Vital Signs Vital Sign Reading Time Taken Comments Blood Pressure 130/88 09/22/2016 3:54 PM CDT Pulse 65 09/22/2016 3:54 PM CDT Temperature - - Respiratory Rate - - Oxygen Saturation 98% 09/22/2016 3:54 PM CDT Inhaled Oxygen Concentration - - Weight 146.5 kg (323 lb) 09/22/2016 3:54 PM CDT Height 179.1 cm (5' 10.5 ) 09/22/2016 3:54 PM CD T Body Mass Index 45.69 09/22/2016 3:54 PM CDT Plan of Treatment Health Maintenance Due Date Last Done Comments Hepatitis C Virus (HCV) Screening 1955 TdaP Immunization 1955 Colonoscopy 1998 Colorectal Cancer Screening 1998 Cologuard 2003 Immunochemical Fecal Occult Blood 2003 Pneumococcal Immunization (5 0+ years) (1 of 1 - PCV) 2003 Zoster Immunization (1 of 2) 2003 Influenza Immunization (#1) 2023 SARS-COV-2 Immunization (2023- season) 2023 Respiratory Syncytial Virus (RSV) Immunization (Adult) (1 - 1-dose 75+ series) 2028 Hepatitis B Immunization Aged Out No longer eligible based on patient's age to complete this topic Meningococcal Immunization (ACWY) Aged Out No longer eligible based on patient's age to complete this topic Rotavirus Immunization Aged Out No lo nger eligible based on patient's age to complete this topic Insurance MEDICARE C [facility] on file Care Teams Prop And Effects Designer Relationship Specialty Start Date End Date Gerardo Whalen MD [address] [place] [id number] PCP - General Family Medicine 07/15/16
== END 2024-05-28 07:14 | disposition home or self-care (01) ==
PROVIDERS: PCP Family Medicine; Visit Provider Family Medicine
DX: I65.23 Occlusion and stenosis of bilateral carotid arteries (principal)
CPT/HCPCS: 93880

== ENCOUNTER 2024-05-29 12:35 | Outpatient (CLI) | payer MEDICARE, SELFPAY ==
--- NOTE | 2024-05-29 12:49 | ECHO_ITS ---
Patient Info Name: Bradley Lockwood Age: 69 years : 1955 Gender: Male Ht: 70 in Wt: 278 lbs BSA: 2.55 m2 HR: 98 bpm BP: 134 / 92 mmHg Heart Rhythm: Sinus Rhythm Technical Quality: Fair Exam Date: 05/29/2024 12:55 PM Exam Location: Echo Lab Patient Status: Outpatient Admit Date: 05/29/2024 Staff Ordering Physician: Charla Flower DO Pit Steward: Eliza Moulton RDCS Attending Provider: Charla Flower DO Referring Physician: Mundo RODRIGUEZ; Exam Type: CA echo dop color flow w con Study Info Indications R55 - Syncope and collapse Complete two-dimensional, color flow and Doppler transthoracic echocardiogram is performed with contrast to opacify the left ventricle and to improve the deliniation of the left ventricle endocardial borders. Contrast/Agitated Saline Contrast/Ag. Saline: Definity Amount: 2.00 ml Administered By: Eliza Moulton RDCS Existing IV Access: No New IV Access: Left Site Condition: IV removed Summary 1. Definity contrast administered improved wall motion interpretation. 2. Left ventricular chamber dimension is normal. 3. Left ventricular systolic function is normal, estimated at 60-65%. 4. The left ventricular diastolic function is grade I diastolic dysfunction. 5. E/e' 6 is not elevated. 6. There is trace pulmonic regurgitation. Left Ventricle E/e' 6 is not elevated. Definity contrast administered improved wall motion interpretation. Left ventricular chamber dimension is normal. Left ventricular systolic function is normal, estimated at 60-65%. The left ventricular diastolic function is grade I diastolic dysfunction. Right Ventricle Right ventricular systolic function is normal and with normal TAPSE 1.9 cm. Right ventricular chamber dimension is normal. Left Atria Left atrial chamber dimension is normal. Right Atria Right atrial chamber dimension is normal. Aortic Valve The aortic valve is trileaflet. There is no aortic valve stenosis. There is no aortic valve regurgitation. Pulmonic Valve There is trace pulmonic regurgitation. Mitral Valve There is no mitral valve stenosis. There is no mitral valve regurgitation. Tricuspid Valve There is no tricuspid valve regurgitation. Pericardium/Pleural There is no pericardial effusion. Inferior Vena Cava Normal inferior vena cava with >50% collapse upon inspiration consistent with normal right atrial pressure, 5 mmHg. Aorta The aortic root size at the sinus of Valsalva is normal. Left Ventricular Outflow Tract Name Value Normal LVOT 2D LVOT Diameter 2.21 cm LVOT Doppler LVOT Peak Gradient 2 mmHg LVOT Mean Gradient 1 mmHg LVOT VTI 11.35 cm LVOT VTI/AV VTI Ratio 0.53 LVOT Stroke Volume 43.51 ml LVOT CO 3.88 l/min LVOT CI 1.52 L/min/m2 Pulmonic Valve Name Value Normal RVOT Doppler RVOT Peak Gradient 3 mmHg PV Doppler PV Peak Gradient 5 mmHg Mitral Valve Name Value Normal MV Doppler MV Decel [place] 334.82 cm/s2 MV PHT 0 s MV Area (PHT) 6.86 cm2 4.00-5.00 MV Diastolic Function MV E Peak Velocity 37.05 cm/s MV A Peak Velocity 64.28 cm/s MV E/A 0.58 MV Decel Time 0 s MV Annular TDI MV E/e' (Septal) 7.49 <=8.00 MV E/e' (Lateral) 5.19 <=8.00 MV E/e' (Average) 6.34 Tricuspid Valve Name Value Normal Estimated PAP/RSVP RA Pressure 5 mmHg <=5 Aorta Name Value Normal Ascending Aorta Ao Root Diameter (MM) 3.64 cm Ao Root Diam Index (MM) 1.43 cm/m2 Aortic Valve Name Value Normal AV Doppler AV Peak Velocity 147.63 cm/s AV Peak Gradient 9 mmHg AV Mean Gradient 5 mmHg AV VTI 21.35 cm AV Area (Cont Eq VTI) 2.04 cm2 >=3.00 AV Area (Cont Eq Delfin) 1.82 cm2 AV Regurgitation 2D LVOT Area 3.83 cm2 Ventricles Name Value Normal LV Dimensions 2D/MM IVS Diastolic Thickness (2D) 1.21 cm 0.60-1.00 LVID Diastole (2D) 5.30 cm 4.20-5.80 LVIW Diastolic Thickness (2D) 1.08 cm 0.60-1.00 LVID Systole (2D) 3.43 cm 2.50-4.00 LVOT Diameter 2.21 cm LV Mass (2D Cubed) 239.60 g 88.00-224.00 LV Mass Index (2D Cubed) 0.01 g/cm2 0.00-0.01 Relative Wall Thickness (2D) 0.41 LV Fractional Shortening/Ejection Fraction 2D/MM LV Fractional Shortening (2D) 35 % 25-43 LV EF (2D Teicholz) 64 % 52-72 LV Diastolic Volume (4C MOD) 52.74 ml LV EF (4C MOD) 56 % LV Diastolic Volume (2C MOD) 58.53 ml LV EF (2C MOD) 68 % LV Diastolic Volume (BP MOD) 55.79 ml 62.00-150.00 LV Diastolic Volume Index (BP MOD) 0.02 l/m2 0.03-0.07 LV Systolic Volume (BP MOD) 22.35 ml 21.00-61.00 LV Systolic Volume Index (BP MOD) 0.01 l/m2 0.01-0.03 LV EF (BP MOD) 60 % 52-72 LV Diastolic Length (4C) 7.94 cm LV Systolic Length (4C) 6.92 cm LV Stroke Volume (4C MOD) 29.60 ml Atria Name Value Normal LA Dimensions LA Dimension (MM) 4.00 cm 3.00-4.10 LA Volume (4C A-L) 27.66 ml LA Volume (BP A-L) 38.81 ml RA Dimensions RA Area (4C) 14.36 cm2 <=18.00 Report Signatures
--- OUTSIDE RECORDS SUMMARY | 2024-05-29 13:25 | XMS_ITS | Clinical Summary ---
Author Organization [facility] Address [address], [address] [address] Phone Care Team Providers Care Chemist Instrumentation Name Role Phone Gerardo Whalen MD Primary Care Provider Medications PROAIR HFA 108 (90 Base) MCG/ACT [...] to complete this topic Insurance MEDICARE C [facility] on file Care Teams Chemist Instrumentation Relationship Specialty Start Date End Date Gerardo Whalen MD [address] [place] [id number] PCP - General Family Medicine 07/15/16
--- OUTSIDE RECORDS SUMMARY | 2024-05-29 13:25 | XMS_ITS | Clinical Summary ---
Author Organization [facility] Address [address] [place] [address] Care Team Providers Care Target Aircraft Controller Name Role Phone Gerardo Whalen MD Primary Care Provider [phone] Social History Tobacco Use Types Packs/Day Years [...] patient's age to complete this topic Insurance [facility] Care Teams Target Aircraft Controller Relationship Specialty Start Date End Date Gerardo Whalen MD [address] [place] [address] PCP - General FAMILY PRACTICE 08/03/21
--- OUTSIDE RECORDS SUMMARY | 2024-05-29 13:25 | XMS_ITS | Referral Summary ---
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
--- OUTSIDE RECORDS SUMMARY | 2024-05-29 13:25 | XMS_ITS | Clinical Summary ---
Author Organization [facility] Address [address] [place] [address] Care Team Providers Care Metal Sash Setter Name Role Phone Gerardo Whalen MD Primary Care Provider [phone] Allergies Active Allergy Reactions Criticality Noted Date [...] on file Legal Sex Male 10:16 AM LAYER OFF Gender Identity Not on file Sexual Orientation [...] as needed Medical Devices Implanted Type Area Rotor Assembler Device Identifier Shelf Expiration Date Model / Serial / Lot Metal Fragments Left: Forearm Insurance [facility] REF [facility] MED[facility] Address: [facility] [address] [id number] [facility] RE[facility] Address[facility] [address] [place] [address] MEDICARE SOLUTIONS [facility] Address: [address] [address] [place] [address] [facility]CR HMO REF [facility] Address: [facility] [address] [place] [address] Care Teams Metal Sash Setter Relationship Specialty Start Date End Date Gerardo Whalen MD PCP - General 04/04/17
--- OUTSIDE RECORDS SUMMARY | 2024-05-29 13:26 | XMS_ITS | Clinical Summary ---
Author Organization [facility] Address [address] [place] [address] Phone Care Team Providers Care Sustainment Logistics Analyst Name Role Phone Unavailable Primary Care Provider [...] (1 - 1-dose 75+ series) 2028 Insurance [facility] [id number]
[2024-05-29] MEDS: PERFLUTREN LIPID MICROSPHERES 1.5 ML VIAL DILUTED TO 10 ML TOTAL VOLUME IV PUSH (13:40)
--- NOTE | 2024-05-29 15:57 | IVDEFINITY ---
Prior to administration of IV Definity the patient was educated on the risks and benefits of the imaging enhancing agent including potential adverse side effects. The patient verbalized understanding. Allergies were verified. No exclusion criteria were identified and at least one of the following inclusion criteria were met: 1) physician request, 2) patient technically difficult to image (per the [place] Society of Echocardiography guidelines of two or more segments not discernable within the apical view), or 3) questionable left ventricular function. ?
== END 2024-05-29 12:36 | disposition home or self-care (01) ==
PROVIDERS: PCP Family Medicine; Visit Provider Family Medicine
DX: R55 Syncope and collapse (principal)
CPT/HCPCS: 93242; C8929; Q9957

== ENCOUNTER 2024-07-05 09:46 | Outpatient (CLI) | payer MEDICARE, SELFPAY ==
--- OUTSIDE RECORDS SUMMARY | 2024-07-05 10:22 | XMS_ITS | Clinical Summary ---
Author Organization [facility] Address [address] [place] [address] Care Team Providers Care Loader Malt House Name Role Phone Gerardo Whalen MD Primary Care Provider [phone] Social History Tobacco Use Types Packs/Day Years [...] patient's age to complete this topic Insurance [facility] Care Teams Loader Malt House Relationship Specialty Start Date End Date Gerardo Whalen MD [address] [place] [address] PCP - General FAMILY PRACTICE 08/03/21
--- OUTSIDE RECORDS SUMMARY | 2024-07-05 10:22 | XMS_ITS | Clinical Summary ---
Author Organization [facility] Address [address] [place] [address] Phone Care Team Providers Care Meat Carver Name Role Phone Unavailable Primary Care Provider [...] Colonography Q 5 years 1998 PNEUMOCOCCAL VACCINE 50+ YEARS (1 of 1 - PCV) 05/18/19 04 ZOSTER VACCINE (1 of 2) 2003 INFLUENZA VACCINE (#1) 2023 RSV VACCINE (60+ or ) (1 - 1-dose 75+ series) 2028 Insurance [facility] [id number]
--- OUTSIDE RECORDS SUMMARY | 2024-07-05 10:22 | XMS_ITS | Clinical Summary ---
Author Organization [facility] Address [address], [address] [address] Phone Care Team Providers Care Cash Reconciliation Specialist Name Role Phone Gerardo Whalen MD Primary Care Provider [phone] Medications PROAIR HFA 108 (90 Base) MCG/ACT [...] to complete this topic Insurance MEDICARE C [facility] on file Care Teams Cash Reconciliation Specialist Relationship Specialty Start Date End Date Gerardo Whalen MD [address] [place] [address] PCP - General Family Medicine 07/15/16
--- NOTE | 2024-07-26 11:53 | WPDSLEEPSTUD ---
Sleep Study Date of Study: 07/05/24 Ordering Provider: Charla Flower DO Interpreting Physician: Mellisa Sales MD Sleep Study Type: Split Polysomnogram Height: 1.78 m Weight: 127.006 kg Body Mass Index: 40.1 Neck Circumference (inches): 17 [place]: 10 Reason for Sleep Study Hypersomnolence Sleep History Gene Mandie is a 69-year-old man with excessive daytime sleepiness. He says that he simply cannot sleep at night. He never awakens from sleep feeling short of breath. He never wakes at night with heartburn, belching or coughing.??He frequent snores, however only occasionally snores loudly enough that others complain. He occasionally has trouble sleeping when he has a cold. He never wakes up gasping for breath during the night. He never has breathing problems at night. He never sweats excessively at night. He never notices his heart pounding or beating irregularly during the night. He occasionally falls asleep during the day. He never falls asleep involuntarily, never falls asleep while driving. He never experiences loss of muscle tone with strong emotion. He never has daytime difficulty at work due to excessive sleepiness. He never feels paralyzed on waking or falling asleep. He constantly experiences vivid dreams upon waking or falling asleep. He never feels afraid of going to sleep. He never has nightmares. He constantly recalls his dreams. He constantly has thoughts racing through his mind. He occasionally feels sad or depressed. He constantly feels anxiety. He occasionally notices parts of his body jerk. He never kicks during the night. He occasionally feels crawling or aching feelings in his legs. He constantly feels leg pain at night. He never has morning jaw pain, nor does he grinds his teeth at night. He constantly feels bothered by pain during the day, is constantly awakened by pain during the night. He always wakes up feeling stiff in the morning, and he constantly wakes feeling sore or achy. He constantly awakens with pain in his neck, spine, or joints. He has fatigue, concentration difficulties and headaches Normal bedtime is between 10:00 p.m. and 11:00 p.m., falling asleep within 1-2 hours, waking at night, the number of times varies. While awake, he goes to his recliner. These awakenings may occur soon after falling asleep, in the middle of the night and in the ross carrier driver hours. Wake time is 8:00 a.m.. He reports getting between 3 and 4 hours of sleep during the night. He keeps a similar schedule on weekends, bedtime is between 10:00 p.m. and 11:00 p.m., wake time is later, 9:30 a.m. He takes naps in the afternoon or evening, and a short nap lasting 10-15 minutes may be refreshing. He usually feels drowsy after waking. He feels better in the afternoon compared to other times of day. 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 mellitus Diabetes Anxiety Kidney stones Surgical complication CORY (obstructive sleep apnea) Degenerative disc disease Hypertension High cholesterol Surgical History Surgical History History of knee surgery History of back surgery Family History Family History Other Diabetes mellitus Family history of allergic disorder Family history of arthritis Family history of cardiovascular disease Family history of chronic obstructive pulmonary disease Family history of mental disorder Family history of type 2 diabetes mellitus Hypertension Social History Social History Smoking status: Never smoker Second hand tobacco smoke exposure: Yes Alcohol intake: former Substance use: never Do You Feel Safe in your Home?: Yes Lack of Transportation: No Lack of Food: Never True Current Housing: I Have Housing Concerned About Future Housing: No Difficulty Paying Gas/Electric Bills: No Difficulty Paying for Meds: No Currently Unemployed: No Education: High School Diploma/GED Difficulty w/ Childcare or Family Care: No Living arrangements: with family Occupation/Education: retired Gender identity (if verbalized by the patient): Male Sexual Orientation (if Verbalized by the Patient): Straight or Heterosexual Agree to blood products: Yes Medications Home Medications ?Medication ?Instructions ?Recorded ?Confirmed ?Type acetaminophen 500 mg tablet 500 mg PO Q6H PRN 02/16/24 06/14/24 History (Tylenol Extra Strength) folic acid 1 mg tablet 1 mg PO DAILY 02/16/24 06/14/24 History methotrexate sodium 2.5 mg tablet 2.5 mg PO WEEKLY 02/16/24 06/14/24 History omega 4-jnf-xgz-fish oil 300 1 cap PO DAILY 02/16/24 06/14/24 History mg-1,000 mg capsule (Fish Oil) furosemide 20 mg tablet 20 mg PO QAM #90 tabs 05/02/24 06/14/24 Rx lisinopril 40 mg tablet 40 mg PO DAILY #90 tabs 05/02/24 06/14/24 Rx metformin 500 mg tablet 500 mg PO BID #180 tabs 05/02/24 06/14/24 Rx simvastatin 20 mg tablet 20 mg PO DAILY #90 tabs 05/02/24 06/14/24 Rx adalimumab 40 mg/0.4 mL mg subcut 05/17/24 06/14/24 History subcutaneous pen kit (Humira(CF) Pen) amlodipine 5 mg tablet 10 mg PO 05/17/24 06/14/24 History allopurinol 300 mg tablet 300 mg PO DAILY #90 tabs 05/31/24 06/14/24 Rx eszopiclone 3 mg tablet (Lunesta) 3 mg PO QHS #1 tablet 06/14/24 06/14/24 Rx hydrocodone 5 mg-acetaminophen 325 1 tablet PO Q8H PRN pain #90 tabs 06/14/24 06/14/24 Rx mg tablet sertraline 100 mg tablet 100 mg PO DAILY #90 tabs 06/14/24 06/14/24 Rx blood sugar diagnostic (OneTouch #100 ea 07/03/24 Rx Verio test strips) Sleep Procedure A split night polysomnogram using the Plasticell multi-channel system recorded the standard physiologic parameters including EEG, EOG, submentalis EMG, anterior tibialis EMG, EKG, body position, nasal and oral airflow using nasal pressure sensor and thermistor. Respiratory parameters of chest and abdominal movements were recorded with Respiratory Inductance Plethysmography belts. Oxygen saturation was recorded by pulse oximetry. Video monitoring was also performed. Sleep stages, periodic limb movements, and EEG arousals were scored in 30 second epochs according to the criteria of the AASM Scoring Manual. The Apnea-Hypopnea Index was calculated using CMS guidelines for definition of hypopnea while scoring respiratory events. He self -administered Lunesta 3 mg at the start of the test. After the baseline portion the patient met criteria for a titration with an AHI of 16.4 and desaturation to 88%. He used a large ResMed AirTouch F20 fullface mask with heated humidity, initial PAP pressure was CPAP 5 cm, increased to 6 cm, 7 cm , 9 cm. At CPAP 9 cm, the patient spent 127 minutes in bed, 20.5 minutes awake, 70 minutes in non-REM, and 36.5 minutes in REM. The sleep efficiency was 83.9%. residual apnea hypopnea index was 0.6. the lowest saturation was 93%. REM occurred in the right lateral position. Sleep Architecture During the diagnostic portion of the study, the total recording time was 198.3 minutes. The total sleep time was 150.0 minutes. Sleep latency was 10.2 minutes. REM latency was - minutes. Sleep Efficiency was 75.7%. The patient had 16 awakenings for an awakening index of 6.4. Wake after sleep onset time was 38.0 minutes. The patient spent 24.5 minutes, 16.3% of total sleep time in Stage N1. The patient spent 125.5 minutes, 83.7% in Stage N2. The patient spent no time in Stage N3 or Stage REM sleep. At 02:13:18 AM the patient was placed on PAP treatment and was titrated at pressures ranging from CPAP 5 cm to 9 cm. During the treatment portion of the study, the total recording time was 255.0 minutes. The total sleep time was 218.0 minutes. Sleep latency was 10.5 minutes. REM latency was 72.0 minutes. Sleep Efficiency was 85.5%. Wake after Sleep Onset time was 26.5 minutes. The patient spent 21.0 minutes, 9.6% of total sleep time in Stage N1. The patient spent 119.0 minutes, 54.6% in Stage N2. The patient spent 8.5 minutes, 3.9% in Stage N3. The patient spent 69.5 minutes, 31.9% in Stage REM. Respiratory Analysis During the diagnostic portion of the study, the patient had 6 hypopneas, 31 obstructive apneas, 1 mixed apnea, and 3 central apneas for an overall Apnea Hypopnea Index of 16.4 events per hour. The REM Apnea Hypopnea Index was O as ther ewas no REM on the baseline. The NREM Apnea Hypopnea Index was 16.4. The patient had a Central Apnea Hypopnea Index of 1.2. There were no Respiratory Effort Related Arousals. The Respiratory Disturbance Index is 18.8 events per hour. There was no evidence of Hayden-Moralez Respirations. During the treatment portion of the study, the patient had 1 hypopneas, 1 obstructive apnea, no mixed apneas or central apneas for an overall Apnea Hypopnea Index of 0.6 events per hour. The REM Apnea Hypopnea Index was 0.9. The NREM Apnea Hypopnea Index was 0.4. The patient had a Central Apnea Hypopnea Index of 0. There were no Respiratory Effort Related Arousals. The Respiratory Disturbance Index is 2.5 events per hour. There was no evidence of Hayden-Moralez Respirations. Arousals During the diagnostic portion of the study, there were a total of 190 arousals for an arousal index of 76.0. There were 32 respiratory arousals for an index of 12.8. There were 129 periodic limb movement arousals for an index of 51.6. There were 8 isolated limb movement arousals for an index of 3.2. There were 21 spontaneous arousals for an index of 8.4. During the treatment portion of the study, there were a total of 67 arousals for an index of 18.4. There were 5 respiratory arousals for an index of 1.4. There were 36 periodic limb movement arousals for an index of 9.9. There were 10 isolated limb movement arousals for an index of 2.8. There were 17 spontaneous arousals for an index of 4.7. Periodic Limb Movements During the diagnostic portion of the study, the patient had 9 isolated limb movements with an index of 3.6. The patient had 279 periodic limb movements with an index of 111.6. The patient had a total of 288 limb movements with a total limb movement index of 115.2. During the treatment portion of the study, the patient had 22 isolated limb movements with an index of 6.1. The patient had 143 periodic limb movements with an index of 39.4. The patient had a total of 165 limb movements with a total limb movement index of 45.4. Oximetry Data During the diagnostic portion of the study, the patient had an average oxygen saturation of 93% in wake with a minimum oxygen saturation of 87% and a maximum oxygen saturation of 98%. The patient had an average oxygen saturation of 93.8% in sleep with a minimum oxygen saturation of 88% and a maximum oxygen saturation of 98%. The patient had 37 oxygen desaturations resulting in an Oxygen Desaturation Index of 14.8. The patient spent 0.5 minutes, 0.3% of total sleep time with an oxygen saturation less than 88%. During the treatment portion of the study, the patient had an average oxygen saturation of 96.1% in wake with a minimum oxygen saturation of 93% and a maximum oxygen saturation of 98%. The patient had an average oxygen saturation of 95% in sleep with a minimum oxygen saturation of 90% and a maximum oxygen saturation of 99%. The patient had 11 oxygen desaturations resulting in an Oxygen Desaturation Index of 3.0. The patient spent no time with an oxygen saturation less than 88%. Snoring Profile Snoring was moderate, eliminated during the titration. Cardiac Profile During the diagnostic portion of the study, the EKG showed normal sinus rhythm. The average pulse rate was 62.7 bpm. The minimum pulse rate was 55 bpm. The maximum pulse rate was 76 bpm. No arrhythmias noted. During the treatment portion of the study, the EKG showed normal sinus rhythm. The average pulse rate was 58.2 bpm. The minimum pulse rate was 45 bpm. The maximum pulse rate was 77 bpm. No arrhythmias noted. EEG Profile EEG was unremarkable, no evidence of seizures. Assessment and Plan Assessment and Plan (1) Obstructive sleep apnea: Code(s): G47.33 - Obstructive sleep apnea (adult) (pediatric) Status: Acute Assessment and Plan: This split night polysomnogram on July 05, 2024 shows moderate obstructive sleep apnea, the apnea hypopnea is 16.4 with desaturation to 88%, with moderate snoring, successfully treated with a large ResMed AirTouch F20 full face mask with pressure of CPAP 9 cm and heated humidity. At CPAP 9 cm, the patient spent 127 minutes in bed, 20.5 minutes awake, 70 minutes in non-REM, and 36.5 minutes in REM. The sleep efficiency was 83.9%. residual apnea hypopnea index was 0.6. the lowest saturation was 93%. REM occurred in the right lateral position. The patient should be prescribed this ResMed equipment as well as tubing, filters and reservoir. This should be used with all episodes of sleep. Compliance should be reviewed within 31-90 days of starting therapy for usage greater than 4 hours per night greater than 70% of the nights. The patient should be asked about symptoms such as excessive daytime sleepiness, quality of sleep, decreased nocturia, increased mental functioning such as memory, mood, and concentration. BMI is 40. Weight management is advised. Clinical data suggests that weight loss of 10% can reduce the severity of respiratory events and snoring and improve AHI by as much as 25%. Data The data obtained during this sleep study is adequate for interpretation. Certification This sleep study has been reviewed by a board certified sleep medicine physician.
[2024-08-01 19:59] VITALS: BMI 40.1
== END 2024-07-06 06:47 | disposition home or self-care (01) ==
LOC: ANHCSM 09:51
PROVIDERS: PCP Family Medicine; Visit Provider Family Medicine
DX: G47.00 Insomnia, unspecified (principal); G47.33 Obstructive sleep apnea (adult) (pediatric)
CPT/HCPCS: 95811

== ENCOUNTER 2024-08-07 09:39 | Outpatient (CLI) | payer MEDICARE, SELFPAY ==
--- OUTSIDE RECORDS SUMMARY | 2024-08-07 10:44 | XMS_ITS | Clinical Summary ---
Author Organization [facility] Address [address], [facility] [address] [place] [address] Phone Care Team Providers Care Iap Displays Analyst Name Role Phone Gerardo Whalen MD Primary [...] to complete this topic Insurance MEDICARE C [facility] on file Care Teams Iap Displays Analyst Relationship Specialty Start Date End Date Gerardo Whalen MD [address] [place] [address] PCP - General Family Medicine 07/15/16
--- OUTSIDE RECORDS SUMMARY | 2024-08-07 10:44 | XMS_ITS | Clinical Summary ---
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 Gender Identity Not on file Sexual Orientation [...] - Tdap) 1964 Hepatitis B Screening 1971 Pneumococcal vaccine 65+ (1 of 1 - PCV) 2003 Zoster Vaccine (1 of 2) 2003 Abdominal Aortic Aneurysm (A AA) Screen 2018 Well Visit 65+ 2018 Fall Risk [...] as needed Medical Devices Implanted Type Area Handkerchief Sample Clerk Device Identifier Shelf Expiration Date Model / Serial / Lot Metal Fragments Left: Forearm Insurance [facility] HMO REF [place] [id number] [facility] [place] [address] [place] [address] [facility] [place] [address] Care Teams Launch Steward Relationship Specialty Start Date End Date Gerardo Whalen MD PCP - General 04/04/17
--- OUTSIDE RECORDS SUMMARY | 2024-08-07 10:44 | XMS_ITS | Referral Summary ---
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
--- OUTSIDE RECORDS SUMMARY | 2024-08-07 10:44 | XMS_ITS | Clinical Summary ---
Author Organization [facility] Address [address] [place] [address] Care Team Providers Care Bluing Oven Tender Name Role Phone Gerardo Whalen MD Primary Care Provider [phone] Social History Tobacco Use Types Packs/Day Years [...] Td Vaccines ( 1 - Tdap) 1972 Pneumococcal Vaccine: 50+ Years (1 of 1 - PCV) 2003 Zoster Vaccines (1 of 2) 2003 Annual Medicare Wellness Visit 2018 COVID-19 Vaccine (4 - 2023-2 5 season) 2023 03/06/2021, 07/08/2020, 05/29/2020 RSV Immunization or 60+ Years (1 - [...] patient's age to complete this topic Insurance [facility] Care Teams Bluing Oven Tender Relationship Specialty Start Date End Date Gerardo Whalen MD [address] [place] [address] PCP - General FAMILY PRACTICE 08/03/21
--- OUTSIDE RECORDS SUMMARY | 2024-08-07 10:44 | XMS_ITS | Clinical Summary ---
Author Organization [facility] Address [address] [place] [address] Phone Care Team Providers Care Sociology Teacher Name Role Phone Unavailable Primary Care Provider [...] (1 - 1-dose 75+ series) 2028 Insurance [facility] [id number]
[2024-08-07 11:06] LABS: Basophils Absolute Auto 0.1 K/mm3 (0.0-0.1); Basophils Percent Auto 0.9 % (0.2-1.2); Eosinophils Absolute Auto 0.2 K/mm3 (0-0.3); Hematocrit 45.7 % (42.0-52.0); Hemoglobin 15.1 g/dL (14.0-18.0); Immature Granulocyte Absolute 0.03 K/mm3 (0.00-0.031); Immature Granulocyte Percent A 0.4 % (0-0.5); Lymphocytes Absolute Auto 1.73 K/mm3 (0.9-3.2); Lymphocytes Percent Auto 23.1 % (18.3-44.2); Mean Corpuscular Hemoglobin 33.9 pg (26-34); Mean Corpuscular Volume 102.5 fl (80-100); Mean Platelet Volume 9.5 fl (7.4-10.4); Monocytes Absolute Auto 0.6 K/mm3 (0.1-0.6); Monocytes Percent Auto 7.6 % (2.6-8.5); Neutrophils Absolute Auto 4.9 K/mm3 (1.3-6.7); Platelet Count Result 216 k/mm3 (150-375); Red Blood Count 4.46 M/mm3 (4.6-6.20); Red Cell Distribution Width 12.3 % (11.5-14.5); White Blood Count 7.5 K/mm3 (4.5-10.0)
[2024-08-07 11:15] LABS: Alanine Aminotransferase 33 U/L (6-50); Albumin Level 4.3 g/dL (3.5-5.1); Alkaline Phosphatase 79 U/L (38-126); Anion Gap 8 mmol/L (4-12); Aspartate Amino Transferase 35 U/L (17-59); Bilirubin,Total 0.6 mg/dL (0.2-1.3); Blood Urea Nitrogen 27 mg/dL (9-20); Calcium 9.9 mg/dL (8.4-10.2); Carbon Dioxide 26 mmol/L (22-30); Chloride 104 mmol/L (98-107); Cholesterol 147 mg/dL (0-200); Estimated Glomerular Filt Rate 59; Glucose 108 mg/dL (65-110); HDL Direct 36 mg/dL; Potassium 4.3 mmol/L (3.4-5.0); Sodium 138 mmol/L (137-145); Triglycerides 178 mg/dL (<150)
[2024-08-07 11:26] LABS: LDL Cholesterol Direct 63 mg/dL
[2024-08-07 11:45] LABS: Prostate Specific Antigen 1.1 ng/mL (< OR = 4.0)
[2024-08-07 12:10] LABS: Vitamin D 25 Hydroxy 32.9 ng/mL
[2024-08-07 12:14] LABS: Creatinine Urine 107.5 mg/dL
[2024-08-07 12:19] LABS: MALB Creatinine Ratio 16.1 mg/g (0-30); Microalbumin Urine Random 17.3 mg/L (0-16.7)
[2024-08-07 12:35] LABS: Hemoglobin A1C 5.6 % (<5.7)
== END 2024-08-07 09:40 | disposition home or self-care (01) ==
LOC: ANHGOSHLAB 09:41
PROVIDERS: PCP Family Medicine; Visit Provider Family Medicine
DX: E11.9 Type 2 diabetes mellitus without complications (principal); E55.9 Vitamin D deficiency, unspecified; M06.9 Rheumatoid arthritis, unspecified; R53.83 Other fatigue; Z12.5 Encounter for screening for malignant neoplasm of prostate
CPT/HCPCS: 36415; 80053; 80061; 82043; 82306; 83036; 84153; 84443; 85025; G0103

== ENCOUNTER 2024-08-10 10:24 | Outpatient (CLI) | payer MEDICARE, SELFPAY ==
--- OUTSIDE RECORDS SUMMARY | 2024-08-10 10:46 | XMS_ITS | Clinical Summary ---
Author Organization [facility] Address [address], [address] [address] Phone Care Team Providers Care Pharmacist Intern Name Role Phone Gerardo Whalen MD Primary [...] to complete this topic Insurance MEDICARE C [facility] on file Care Teams Pharmacist Intern Relationship Specialty Start Date End Date Gerardo Whalen MD [address] [place] [address] PCP - General Family Medicine 07/15/16
--- OUTSIDE RECORDS SUMMARY | 2024-08-10 10:46 | XMS_ITS | Clinical Summary ---
Author Organization [facility] Address [address] [place] [address] Care Team Providers Care Ornamental Iron Erector Name Role Phone Gerardo Whalen MD Primary Care Provider [phone] Social History Tobacco Use Types Packs/Day Years [...] patient's age to complete this topic Insurance [facility] Care Teams Ornamental Iron Erector Relationship Specialty Start Date End Date Gerardo Whalen MD [address] [place] [address] PCP - General FAMILY PRACTICE 08/03/21
--- OUTSIDE RECORDS SUMMARY | 2024-08-10 10:47 | XMS_ITS | Clinical Summary ---
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 [address] [id number] [facility] REF [facility] Address[facility] [address] [place] [address] UHC MEDICARE ADVANTAGE [facility] Address: [facility] [address] [place] [address] [facility] MDCR HMO REF [facility] MED[facility] Address: [facility] [address] [place] [address] Care Teams Bar Porter Relationship Specialty Start Date End Date Gerardo Whalen MD PCP - General 04/04/17
--- OUTSIDE RECORDS SUMMARY | 2024-08-10 10:47 | XMS_ITS | Referral Summary ---
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
--- OUTSIDE RECORDS SUMMARY | 2024-08-10 10:47 | XMS_ITS | Clinical Summary ---
Author Organization [facility] Address [address] [place] [address] Phone Care Team Providers Care Director Of Strategic Sourcing Name Role Phone Unavailable Primary Care Provider [...] (1 - 1-dose 75+ series) 2028 Insurance [facility] [id number] [place] [address]
[2024-08-10 10:58] LABS: Basophils Absolute Auto 0.1 K/mm3 (0.0-0.1); Basophils Percent Auto 0.6 % (0.2-1.2); Eosinophils Absolute Auto 0.2 K/mm3 (0-0.3); Eosinophils Percent Auto 2.1 % (0-4.4); Hematocrit 45.4 % (42.0-52.0); Hemoglobin 14.8 g/dL (14.0-18.0); Immature Granulocyte Absolute 0.03 K/mm3 (0.00-0.031); Immature Granulocyte Percent A 0.4 % (0-0.5); Lymphocytes Absolute Auto 1.72 K/mm3 (0.9-3.2); Lymphocytes Percent Auto 21.3 % (18.3-44.2); Mean Corpuscular HGB Conc 32.6 g/dl (32-36); Mean Corpuscular Hemoglobin 33.8 pg (26-34); Mean Corpuscular Volume 103.7 fl (80-100); Mean Platelet Volume 9.1 fl (7.4-10.4); Monocytes Absolute Auto 0.6 K/mm3 (0.1-0.6); Monocytes Percent Auto 7.7 % (2.6-8.5); Neutrophils Absolute Auto 5.5 K/mm3 (1.3-6.7); Neutrophils Percent Auto 67.9 % (45.5-73.1); Platelet Count Result 202 k/mm3 (150-375); Red Blood Count 4.38 M/mm3 (4.6-6.20); Red Cell Distribution Width 12.4 % (11.5-14.5); White Blood Count 8.1 K/mm3 (4.5-10.0)
[2024-08-10 11:07] LABS: Iron 91 ug/dL (49-181)
[2024-08-10 11:16] LABS: Percent Iron Saturation 28 % (20-50)
[2024-08-10 12:15] LABS: Folic Acid 17.6 ng/mL (2.76->20)
== END 2024-08-10 10:25 | disposition home or self-care (01) ==
PROVIDERS: PCP Family Medicine; Visit Provider Family Medicine
DX: D75.89 Other specified diseases of blood and blood-forming organs (principal); R79.89 Other specified abnormal findings of blood chemistry
CPT/HCPCS: 36415; 82607; 82728; 82746; 83540; 83550; 85025

== ENCOUNTER 2024-10-23 16:56 | Emergency (ER) | payer MEDICARE, SELFPAY ==
--- OUTSIDE RECORDS SUMMARY | 2024-10-23 16:58 | XMS_ITS | Clinical Summary ---
Author Organization [facility] Address [address], [address] [address] Phone Care Team Providers Care Combat Systems Operator Name Role Phone Gerardo Whalen MD Primary Care Provider [phone] Medications PROAIR HFA 108 (90 Base) MCG/ACT [...] 3:54 PM CDT Height 179.1 cm (5' 10.5) 09/22/2016 3:54 PM CD T Body Mass Index 45.69 09/22/2016 3:54 PM CDT Plan of Treatment Health Maintenance Due Date Last Done Comments Hepatitis C Virus (HCV) Screening 1955 TdaP Immunization 1955 Cologuard 1998 Colonoscopy 1998 Colorectal Cancer Screening 1998 Immunochemical Fecal Occult Blood 1998 Pneumococcal Immunization (5 0+ years) (1 of 1 - PCV) 2003 Zoster Immunization (1 of 2) 2003 SARS-COV-2 Immunization (2023- season) 2023 Influenza Immunization (#1) 2024 Respiratory Syncytial Virus (RSV) Immunization (Adult) (1 - 1-dose 75+ series) 2028 Hepatitis B Immunization Aged Out No longer eligible based on patient's age to complete this topic Human Papillomavirus (HPV) Immunization Aged Out No longer eligible b ased on patient's age to complete this topic Meningococcal Immunization (ACWY) Aged Out No longer eligible based on patient's age to complete this topic Rotavirus Immunization Aged Out No lo nger eligible based on patient's age to complete this topic Insurance MEDICARE C [facility] on file Care Teams Combat Systems Operator Relationship Specialty Start Date End Date Gerardo Whalen MD [address] [address] PCP - General Family Medicine 07/15/16
--- OUTSIDE RECORDS SUMMARY | 2024-10-23 16:58 | XMS_ITS | Clinical Summary ---
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 HMO REF [place] [id number] [facility] [place] [address] [place] [address] [facility] [place] [address] Care Teams Platform Attendant Relationship Specialty Start Date End Date Gerardo Whalen MD PCP - General 04/04/17
--- OUTSIDE RECORDS SUMMARY | 2024-10-23 16:58 | XMS_ITS | Referral Summary ---
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 MEDICARE Address: [facility] [address] [place] [address] [facility] HMO REF [facility] MEDICARE Address: [address] [address] [place] [address] [facility] MEDICARE ADVANTAGE [facility] MEDICARE Address: [address] [address] [place] [address] [facility] MDCR HMO REF [facility] MEDICARE Address: [address] [address] [place] [address] Care Teams Emt Intermediate Relationship Specialty Start Date End Date Gerardo Whalen MD PCP - General 04/04/17
--- OUTSIDE RECORDS SUMMARY | 2024-10-23 16:58 | XMS_ITS | Clinical Summary ---
Author Organization [facility] Address [address] [place] [address] Phone Care Team Providers Care Recycling Program Manager Name Role Phone Unavailable Primary Care Provider [...] 1:02 PM CDT Height 177.8 cm (5' 10) 02/05/2022 1:02 PM CDT Body Mass Index [...] (1 of 2) 2003 INFLUENZA VACCINE (#1) 2024 RSV VACCINE (60+ or ) (1 - 1-dose 75+ series) 2028 Insurance [facility] [id number]
--- OUTSIDE RECORDS SUMMARY | 2024-10-23 16:58 | XMS_ITS | Clinical Summary ---
Author Organization [facility] Address [address] [place] [address] Care Team Providers Care Program Assistant Name Role Phone Gerardo Whalen MD Primary Care Provider [phone] Social History Tobacco Use Types Packs/Day Years [...] patient's age to complete this topic Insurance [facility] Care Teams Program Assistant Relationship Specialty Start Date End Date Gerardo Whalen MD [address] [place] [address] PCP - General FAMILY PRACTICE 08/03/21
[2024-10-23 17:04] VITALS: BP 135/79; PULSE 81; RESP 18; TEMP 36.6; O2SAT 99
--- NOTE | 2024-10-23 17:34 | ED.GENADULT ---
HPI - General Adult General Chief complaint: Skin/Abscess/Foreign Body Stated complaint: Tick Bite History of Present Illness HPI narrative: Bradley Brown is a 69 y/o male HTN, HLD who presents today wtih reports of noticing a tick on him about a week ago and soaked in alcohol and then pulled it out. He has since develop some erythema to the area then a cleaning and then a reddened circular ring around that, concerned for Lyme exposure Related Data Home Medications ?Medication ?Instructions ?Recorded ?Confirmed ?Last Taken ?Type acetaminophen 500 mg tablet 500 mg PO Q6H PRN 02/16/24 08/16/24 Unknown History (Tylenol Extra Strength) folic acid 1 mg tablet 1 mg PO DAILY 02/16/24 08/16/24 Unknown History methotrexate sodium 2.5 mg tablet 2.5 mg PO WEEKLY 02/16/24 08/16/24 Unknown History omega 6-hyj-gai-fish oil 300 1 cap PO DAILY 02/16/24 08/16/24 Unknown History mg-1,000 mg capsule (Fish Oil) amlodipine 5 mg tablet 10 mg PO 05/17/24 08/16/24 Unknown History abatacept 125 mg/mL subcutaneous 125 mg subcut WEEKLY 08/16/24 08/16/24 Unknown History syringe (Orencia) Allergies Allergy/AdvReac Type Severity Reaction Status Date / Time gabapentin Allergy Unknown unknown Verified 08/16/24 10:05 tetanus toxoid, adsorbed Allergy Unknown DIFFICULTY Verified 08/16/24 10:05 BREATHING Review of Systems Review of Systems: All systems reviewed & are unremarkable except as noted in HPI and below PMFSH Past Medical History Medical History Kidney disease Hyperlipidemia due to type 2 diabetes mellitus Diabetes Anxiety Kidney stones Surgical complication CORY (obstructive sleep apnea) Degenerative disc disease Hypertension High cholesterol Surgical History Surgical History History of knee surgery History of back surgery Family History Family History Other Diabetes mellitus Family history of allergic disorder Family history of arthritis Family history of cardiovascular disease Family history of chronic obstructive pulmonary disease Family history of mental disorder Family history of type 2 diabetes mellitus Hypertension Social History Social History Smoking status: Never smoker Second hand tobacco smoke exposure: Yes Alcohol intake: former Substance use: never Do You Feel Safe in your Home?: Yes Lack of Transportation: No Lack of Food: Never True Current Housing: I Have Housing Concerned About Future Housing: No Difficulty Paying Gas/Electric Bills: No Difficulty Paying for Meds: No Currently Unemployed: No Education: High School Diploma/GED Difficulty w/ Childcare or Family Care: No Living arrangements: with family Occupation/Education: retired Gender identity (if verbalized by the patient): Male Sexual Orientation (if Verbalized by the Patient): Straight or Heterosexual Agree to blood products: Yes Exam Narrative: GENERAL: Well-appearing, well-nourished, and in no acute distress. HEAD: Normocephalic, atraumatic. EYES: PERRLA and EOMI. ENT: Nares clear, no rhinorrhea or epistaxis. Mucous membranes moist. Oropharynx without tonsillar hypertrophy exudate or other lesions. NECK: Supple. No adenopathy or masses. No carotid bruits or JVD CHEST: Clear to auscultation. No respiratory distress. No wheezes rales or rhonchi HEART: Regular rate and rhythm. Normal peripheral pulses. ABDOMEN: Soft EXTREMITIES: Normal range of motion. No edema. SKIN: Warm, dry, no rash. about a 12cm in diameter erythemic flat ring around a clearing with a mild center of erythema no evidence of drainage NEURO: No focal deficits. Alert and oriented x3. PSYCH: Normal mood and affect. Course Course Level of Care: Express Care Visit Vital Signs Vital signs: Vital Signs Temperature 36.6 C 10/23/24 17:04 Pulse Rate 81 10/23/24 17:04 Respiratory Rate 18 10/23/24 17:04 Blood Pressure 135/79 10/23/24 17:04 Pulse Oximetry 99 10/23/24 17:04 Oxygen Delivery Room Air 10/23/24 17:04 Temperature 36.6 C 10/23/24 17:04 Pulse Rate 81 10/23/24 17:04 Respiratory Rate 18 10/23/24 17:04 Blood Pressure 135/79 10/23/24 17:04 Pulse Oximetry 99 10/23/24 17:04 Oxygen Delivery Room Air 10/23/24 17:04 Medical Decision Making MDM Narrative Medical decision making narrative: based on hx and exam concern for lyme exposure from the tick Will start pt on Doxycycline today and he will follow up with his PCP for further evaluation He denies fever/chills Reports some arthritic discomfort but nothing out of his baseline CLose follow up recommended Strict ER precautions discussed He agrees with plan of care and denies needing anything furher at this time Medical Records Medical records reviewed: Yes I reviewed the external patient's medical records. Vital Signs Vital Signs: Vital Signs Temperature 36.6 C 10/23/24 17:04 Pulse Rate 81 10/23/24 17:04 Respiratory Rate 18 10/23/24 17:04 Blood Pressure 135/79 10/23/24 17:04 Pulse Oximetry 99 10/23/24 17:04 Oxygen Delivery Room Air 10/23/24 17:04 Temperature 36.6 C 10/23/24 17:04 Pulse Rate 81 10/23/24 17:04 Respiratory Rate 18 10/23/24 17:04 Blood Pressure 135/79 10/23/24 17:04 Pulse Oximetry 99 10/23/24 17:04 Oxygen Delivery Room Air 10/23/24 17:04 Vitals reviewed by me Discharge Plan Discharge Clinical Impression: Tick bite of abdomen Patient Disposition: Home Condition: Stable Instructions: Antibiotic Form Additional Instructions: Start taking the Doxycycline twice daily for 20 days Take a picture with measurement of the Bullseye on the abdomen to show your PCP, to better evaluate for improvement Call tomorrow to get the follow up appointment If you develop chest pain/ fever/ feeling unwell or any other cocnerns then go to the ER Patient Language: Cymraes Prescriptions: New doxycycline hyclate 100 mg capsule 100 mg PO BID Qty: 40 0RF Rx Instructions: take twice daily for 20 days No Action amlodipine 5 mg tablet 10 mg PO folic acid 1 mg tablet 1 mg PO DAILY methotrexate sodium 2.5 mg tablet 2.5 mg PO WEEKLY Patient Comments: 5 tabs per week omega 8-zol-mlz-fish oil [Fish Oil] 300-1,000 mg capsule 1 cap PO DAILY acetaminophen [Tylenol Extra Strength] 500 mg tablet 500 mg PO Q6H PRN Orencia 125 mg/mL syringe 125 mg subcut WEEKLY escitalopram oxalate [Lexapro] 10 mg tablet 10 mg PO DAILY Qty: 7 0RF escitalopram oxalate [Lexapro] 20 mg tablet 20 mg PO DAILY Qty: 90 0RF Rx Instructions: Start taking after finishing 1 week of lexapro 10 mg lisinopril 40 mg tablet 40 mg PO DAILY Qty: 90 1RF metformin 500 mg tablet 500 mg PO BID Qty: 180 1RF simvastatin 20 mg tablet 20 mg PO DAILY Qty: 90 3RF allopurinol 300 mg tablet 300 mg PO DAILY Qty: 90 1RF (DME) OneTouch Verio test strips Strip See Rx Instructions .Route Qty: 100 1RF Rx Instructions: Use to check blood sugars daily (DME) CPAP See Rx Instructions .Route .MEDSUPPLY Qty: 1 0RF Rx Instructions: Rx: Resmed CPAP 9 cm with size large ResMed AirTouch F20 full face mask, CPAP filters/tubing furosemide 20 mg tablet 20 mg PO QAM Qty: 90 1RF hydrocodone-acetaminophen 5-325 mg tablet 1 tablet PO Q8H PRN (Reason: pain) Qty: 90 0RF Follow-up/Referrals: Charla Flower DO [Primary Care Provider] - 1 Week Time of Disposition: 17:37
== END 2024-10-23 17:46 | disposition home or self-care (01) ==
PROVIDERS: Emergency Provider Nurse Practitioner Family; PCP Family Medicine
DX: S30.861A Insect bite (nonvenomous) of abdominal wall, initial encounter (principal); W57.XXXA Bitten or stung by nonvenomous insect and other nonvenomous arthropods, initial encounter; E11.9 Type 2 diabetes mellitus without complications; Z79.84 Long term (current) use of oral hypoglycemic drugs; E78.5 Hyperlipidemia, unspecified; I10 Essential (primary) hypertension; E78.00 Pure hypercholesterolemia, unspecified; N28.9 Disorder of kidney and ureter, unspecified; F41.9 Anxiety disorder, unspecified; G47.33 Obstructive sleep apnea (adult) (pediatric)
CPT/HCPCS: 99213; G0463

== ENCOUNTER 2024-11-24 11:04 | Emergency (ER) | payer MEDICARE, SELFPAY ==
[2024-11-24] VITALS (8 sets, daily range): BP systolic 108–144; BP diastolic 61–92; PULSE 58–80; RESP 13–16; TEMP 36.4; O2SAT 96–100
--- NOTE | ~2024-11-24 | CT_ITS ---
EXAMINATION: CT brain wo con DATE: 11/24/2024 12:16 INDICATION: Altered mental status TECHNIQUE: Computed tomography (CT) of the head was performed without intravenous contrast. Sagittal and coronal reconstructions were performed. The mA was adjusted according to patient size. Iterative reconstruction technique was employed. The dose-length product was 605.33 mGy-cm. COMPARISON: None FINDINGS: No acute intracranial hemorrhage, acute infarction or abnormal extra axial fluid collection. Symmetri c prominence of the sulci consistent with mild age-appropriate diffuse cerebral volume loss. Ventric les are normal and symmetric. No mass/mass effect. Mild mucosal thickening in the bilateral ethmoid s inuses. The orbits and mastoid air cells are normal. IMPRESSION: 1. Mild likely age-related diffuse volume loss. No acute intracranial process. Reviewed, dictated and finalized at location A.
--- OUTSIDE RECORDS SUMMARY | 2024-11-24 11:06 | XMS_ITS | Clinical Summary ---
Author Organization [facility] Address [address] [place] [address] Care Team Providers Care Senior Revenue Accountant Name Role Phone Gerardo Whalen MD Primary Care Provider [phone] Social History Tobacco Use Types Packs/Day Years [...] patient's age to complete this topic Insurance [facility] Care Teams Senior Revenue Accountant Relationship Specialty Start Date End Date Gerardo Whalen MD [address] [place] [address] PCP - General FAMILY PRACTICE 08/03/21
--- OUTSIDE RECORDS SUMMARY | 2024-11-24 11:06 | XMS_ITS | Clinical Summary ---
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 Gender Identity Not on file Sexual Orientation [...] 2023 03/06/2021, 07/08/2020, 05/29/2020 Influenza Vaccine (#1) 2024 Goals Goal Patient Goal Type Associated [...] as needed Medical Devices Implanted Type Area City Dispatch Supervisor Device Identifier Shelf Expiration Date Model / Serial / Lot Metal Fragments Left: Forearm Insurance [facility] HMO REF [facility] MEDICARE Address: [facility] [address] [address] [id number] [facility] HMO REF [facility] MEDICARE Address: [facility] [address] [place] [address] UHC MEDICARE ADVANTAGE [facility] MEDICARE Address: [facility] [address] [place] [address] [facility] MDCR HMO REF [facility] MEDICARE Address: [facility] [address] [place] [address] Care Teams Client Executive Relationship Specialty Start Date End Date Gerardo Whalen MD PCP - General 04/04/17
--- OUTSIDE RECORDS SUMMARY | 2024-11-24 11:06 | XMS_ITS | Clinical Summary ---
Author Organization [facility] Address [address], [address] [address] Phone Care Team Providers Care Refinery Operator Helper Cracking Unit Name Role Phone Gerardo Whalen MD Primary Care Provider [phone] Medications PROAIR HFA 108 (90 Base) MCG/ACT [...] this topic Insurance MEDICARE C [facility] on file Care Teams Refinery Operator Helper Cracking Unit Relationship Specialty Start Date End Date Gerardo Whalen MD [address] [address] PCP - General Family Medicine 07/15/16
--- OUTSIDE RECORDS SUMMARY | 2024-11-24 11:07 | XMS_ITS | Clinical Summary ---
Author Organization [facility] Address [address] [place] [address] Phone Care Team Providers Care Decal Cutter Name Role Phone Unavailable Primary Care Provider [...] (1 - 1-dose 75+ series) 2028 Insurance [facility] [id number]
--- NOTE | 2024-11-24 12:06 | ED_ITS ---
HPI - General Adult General Chief complaint: Weakness Stated complaint: CONFUSION, DIFF WALKING, RECENT LYME DISEASE Time Seen by Provider: 11/24/24 11:37 History of Present Illness HPI narrative: 69-year-old male presents to the emergency department for evaluation for multiple complaints including diarrhea, generalized weakness, balance issues, increased forgetfulness. Patient was recently diagnosed with Lyme disease by clinical diagnosis from the erythema migrans. Patient was started on doxycycline for about 20 days and patient took 18 days. Patient states he has been having worsening diarrhea since then. Patient does attribute some of his worsening symptoms to the antibiotics. Patient states he does have lower extremity neuropathy but feels that is worsened. Patient does have history of rheumatoid arthritis and follows up with rheumatology and also feels that simply symptoms are consistent with a rheumatoid flare. Patient states he has had worsening balance issues and lower extremity weakness resulting and multiple falls. Patient states he did strike his head during at least 1 of the falls. Patient has history of rheumatoid arthritis, hypertension, hyperlipidemia, type 2 diabetes Related Data Home Medications ?Medication ?Instructions ?Recorded ?Confirmed ?Last Taken ?Type acetaminophen 500 mg tablet 500 mg PO Q6H PRN 02/16/24 08/16/24 Unknown History (Tylenol Extra Strength) methotrexate sodium 2.5 mg tablet 2.5 mg PO WEEKLY 02/16/24 08/16/24 Unknown History omega 1-pxi-xen-fish oil 300 1 cap PO DAILY 02/16/24 08/16/24 Unknown History mg-1,000 mg capsule (Fish Oil) amlodipine 5 mg tablet 10 mg PO 05/17/24 08/16/24 Unknown History abatacept 125 mg/mL subcutaneous 125 mg subcut WEEKLY 08/16/24 08/16/24 Unknown History syringe (Orencia) Allergies Allergy/AdvReac Type Severity Reaction Status Date / Time gabapentin Allergy Unknown unknown Verified 11/24/24 11:06 tetanus toxoid, adsorbed Allergy Unknown DIFFICULTY Verified 11/24/24 11:06 BREATHING Review of Systems 2 Review of Systems: All systems reviewed & are unremarkable except as noted in HPI and below PMFSH Past Medical History Medical History Kidney disease Hyperlipidemia due to type 2 diabetes mellitus Diabetes Anxiety Kidney stones Surgical complication CORY (obstructive sleep apnea) Degenerative disc disease Hypertension High cholesterol Surgical History Surgical History History of knee surgery History of back surgery Family History Family History Other Diabetes mellitus Family history of allergic disorder Family history of arthritis Family history of cardiovascular disease Family history of chronic obstructive pulmonary disease Family history of mental disorder Family history of type 2 diabetes mellitus Hypertension Social History Social History Smoking status: Never smoker Second hand tobacco smoke exposure: Yes Alcohol intake: former Substance use: never Do You Feel Safe in your Home?: Yes Lack of Transportation: No Lack of Food: Never True Current Housing: I Have Housing Concerned About Future Housing: No Difficulty Paying Gas/Electric Bills: No Difficulty Paying for Meds: No Currently Unemployed: No Education: High School Diploma/GED Difficulty w/ Childcare or Family Care: No Living arrangements: with family Occupation/Education: retired Gender identity (if verbalized by the patient): Male Sexual Orientation (if Verbalized by the Patient): Straight or Heterosexual Agree to blood products: Yes Exam 2 Narrative: APPEARANCE: Well appearing, no pain, no distress, well-nourished. HEAD: normocephalic, atraumatic. EYES: PERRLA/EOMI, conjunctivae clear. NOSE: Normal no drainage EARS:TMS clear with good light reflex. THROAT: Pharynx clear, no exudate. NECK: Supple. No adenopathy, no masses. RESPIRATORY: Airway patent, respirations nonlabored. Clear to auscultation bilaterally, no rales, rhonchi, wheezing. CARDIOVASCULAR: Regular rate and rhythm without murmurs rubs or gallops. ABDOMINAL: Soft, nontender, nondistended, normal bowel sounds MUSCULOSKELETAL: Moves all extremities. Strength/ROM intact, No edema, No calf tenderness. NEURO: Alert. Cranial nerves II through XII intact. Good gait. Good coordination SKIN: Resolving erythema migrans lesion on has abdominal wall Course Vital Signs Vital signs: Vital Signs Temperature 97.5 F L 11/24/24 11:17 Pulse Rate 80 11/24/24 11:17 Respiratory Rate 16 11/24/24 11:17 Blood Pressure 144/92 H 11/24/24 11:17 Pulse Oximetry 97 11/24/24 11:17 Temperature 97.5 F L 11/24/24 11:17 Pulse Rate 59 L 11/24/24 15:17 Respiratory Rate 15 11/24/24 15:17 Blood Pressure 116/67 11/24/24 15:17 Pulse Oximetry 100 11/24/24 15:17 Oxygen Delivery Room Air 11/24/24 11:41 Medical Decision Making MDM Narrative Medical decision making narrative: 69-year-old male presents emergency department for evaluation for increased generalized weakness he foggy headedness. Patient did just recently completed a course of doxycycline. Patient does have history of RA. Patient is currently afebrile with no leukocytosis and a stable hemoglobin of 13.3. Patient has a mildly elevated ESR of 27 and a normal CRP, patient's creatinine is mildly elevated compared to his baseline and patient was treated with 2 L of lactated Ringer's. Patient did have orthostatic vital signs and was symptomatic when he stood up prior to rehydration. UA was negative for infection. Patient was negative for influenza RSV and for COVID, Lyme studies are pending, patient's head CT was negative. On re-evaluation patient states he does feel significantly improved. Differential Diagnosis Differential Diagnosis: COVID, RSV influenza, Lyme disease, dehydration, gastritis, enteritis, colitis, orthostatic hypotension Vital Signs Vital Signs: Vital Signs Temperature 97.5 F L 11/24/24 11:17 Pulse Rate 80 11/24/24 11:17 Respiratory Rate 16 11/24/24 11:17 Blood Pressure 144/92 H 11/24/24 11:17 Pulse Oximetry 97 11/24/24 11:17 Temperature 97.5 F L 11/24/24 11:17 Pulse Rate 59 L 11/24/24 15:17 Respiratory Rate 15 11/24/24 15:17 Blood Pressure 116/67 11/24/24 15:17 Pulse Oximetry 100 11/24/24 15:17 Oxygen Delivery Room Air 11/24/24 11:41 Lab Data Lab results reviewed: Yes I reviewed the patient's lab results. 11/24/24 11:44 11/24/24 11:44 Labs: Lab Results 11/24/24 11/24/24 11/24/24 Range/Units 11:43 11:44 12:35 WBC 7.4 (4.5-10.0) K/mm3 RBC 3.92 L (4.6-6.20) M/mm3 Hgb 13.3 L (14.0-18.0) g/dL Hct 38.1 L (42.0-52.0) % MCV 97.2 (80-100) fl MCH 33.9 (26-34) pg MCHC 34.9 (32-36) g/dl RDW 15.7 H (11.5-14.5) % Plt Count 194 (150-375) k/mm3 MPV 9.4 (7.4-10.4) fl Immature Gran % (Auto) 0.5 (0-0.5) % Neut % (Auto) 71.0 (45.5-73.1) % Lymph % (Auto) 23.4 (18.3-44.2) % [place] % (Auto) 2.2 L (2.6-8.5) % Eos % (Auto) 2.2 (0-4.4) % Baso % (Auto) 0.7 (0.2-1.2) % Lymph # (Auto) 1.74 (0.9-3.2) K/mm3 [place] # (Auto) 0.2 (0.1-0.6) K/mm3 Eos # (Auto) 0.2 (0-0.3) K/mm3 Baso # (Auto) 0.1 (0.0-0.1) K/mm3 Abs Immat Gran (auto) 0.04 H (0.00-0.031) K/mm3 Absolute Neuts (auto) 5.3 (1.3-6.7) K/mm3 Absolute Nucleated RBC 0.000 (0.0-0.012) K/mm3 Nucleated RBC % 0.0 (0.0-0.2) % ESR 27 H (0-20) mm/hr PT 13.7 (11.1-14.7) Seconds INR 1.1 APTT 28.9 (22.3-36.8) Seconds Sodium 135 L (137-145) mmol/L Potassium 4.1 (3.4-5.0) mmol/L Chloride 105 (98-107) mmol/L Carbon Dioxide 18 L (22-30) mmol/L Anion Gap 12 (4-12) mmol/L BUN 18 (9-20) mg/dL Creatinine 1.68 H (0.7-1.3) mg/dL Estim Creat Clear Calc 48 ml/min Estimated GFR 40 L (59 - ) Glucose 112 H (65-110) mg/dL Calcium 10.3 H (8.4-10.2) mg/dL Total Bilirubin 1.4 H (0.2-1.3) mg/dL AST 28 (17-59) U/L ALT 16 (6-50) U/L Alkaline Phosphatase 82 (38-126) U/L Total Creatine Kinase 69 (55-170) U/L C-Reactive Protein < 0.5 (<1.0) mg/dL Total Protein 7.2 (6.3-8.2) g/dL Albumin 4.3 (3.5-5.1) g/dL Urine Color (Yellow) Urine Appearance (Clear) Urine pH (5.0-9.0) Ur Specific [place] (1.001-1.035) Urine Protein (Negative) mg/dL Urine Glucose (UA) (Negative) mg/dL Urine Ketones (Negative) mg/dL Ur Blood (Man) (Negative) Urine Nitrate (Negative) Urine Bilirubin (Negative) Urine Urobilinogen (<2.0) mg/dL Add Ur Microanalysis Leukocyte Esterase Rfl (Negative) JOHN/UL Urine RBC (0-2) /hpf Urine WBC (0-3) /hpf Ur Squamous Epith Cells (Few) /hpf Urine Bacteria /hpf Urine Casts Lyme Total Antibody Pending Influenza A (RT-PCR) Negative (Negative) Influenza B (RT-PCR) Negative (Negative) RSV (RT-PCR) Negative (Negative) SARS-CoV-2 RNA (RT-PCR) Negative (Negative) 11/24/24 Range/Units 12:37 WBC (4.5-10.0) K/mm3 RBC (4.6-6.20) M/mm3 Hgb (14.0-18.0) g/dL Hct (42.0-52.0) % MCV (80-100) fl MCH (26-34) pg MCHC (32-36) g/dl RDW (11.5-14.5) % Plt Count (150-375) k/mm3 MPV (7.4-10.4) fl Immature Gran % (Auto) (0-0.5) % Neut % (Auto) (45.5-73.1) % Lymph % (Auto) (18.3-44.2) % [place] % (Auto) (2.6-8.5) % Eos % (Auto) (0-4.4) % Baso % (Auto) (0.2-1.2) % Lymph # (Auto) (0.9-3.2) K/mm3 [place] # (Auto) (0.1-0.6) K/mm3 Eos # (Auto) (0-0.3) K/mm3 Baso # (Auto) (0.0-0.1) K/mm3 Abs Immat Gran (auto) (0.00-0.031) K/mm3 Absolute Neuts (auto) (1.3-6.7) K/mm3 Absolute Nucleated RBC (0.0-0.012) K/mm3 Nucleated RBC % (0.0-0.2) % ESR (0-20) mm/hr PT (11.1-14.7) Seconds INR APTT (22.3-36.8) Seconds Sodium (137-145) mmol/L Potassium (3.4-5.0) mmol/L Chloride (98-107) mmol/L Carbon Dioxide (22-30) mmol/L Anion Gap (4-12) mmol/L BUN (9-20) mg/dL Creatinine (0.7-1.3) mg/dL Estim Creat Clear Calc ml/min Estimated GFR (59 - ) Glucose (65-110) mg/dL Calcium (8.4-10.2) mg/dL Total Bilirubin (0.2-1.3) mg/dL AST (17-59) U/L ALT (6-50) U/L Alkaline Phosphatase (38-126) U/L Total Creatine Kinase (55-170) U/L C-Reactive Protein (<1.0) mg/dL Total Protein (6.3-8.2) g/dL Albumin (3.5-5.1) g/dL Urine Color Dark yellow (Yellow) Urine Appearance Clear (Clear) Urine pH 5.0 (5.0-9.0) Ur Specific [place] 1.023 (1.001-1.035) Urine Protein 1+ H (Negative) mg/dL Urine Glucose (UA) Negative (Negative) mg/dL Urine Ketones Trace H (Negative) mg/dL Ur Blood (Man) Negative (Negative) Urine Nitrate Negative (Negative) Urine Bilirubin 1+ H (Negative) Urine Urobilinogen 1.0 (<2.0) mg/dL Add Ur Microanalysis Reviewed Leukocyte Esterase Rfl Trace H (Negative) JOHN/UL Urine RBC 0-2 (0-2) /hpf Urine WBC 0-5 (0-3) /hpf Ur Squamous Epith Cells None seen (Few) /hpf Urine Bacteria None seen /hpf Urine Casts >20 Lyme Total Antibody Influenza A (RT-PCR) (Negative) Influenza B (RT-PCR) (Negative) RSV (RT-PCR) (Negative) SARS-CoV-2 RNA (RT-PCR) (Negative) Imaging Data Radiologist's impression: Impressions Head CT 11/24/24 12:19 IMPRESSION: 1. Mild likely age-related diffuse volume loss. No acute intracranial process. ECG Data EKG #1: EKG Interpretation: normal rate, sinus rhythm, no ectopy, non-specific ST changes, normal QRS and NL axis Discharge Plan Discharge Clinical Impression: Nausea vomiting and diarrhea, Orthostatic hypotension Patient Disposition: Home Condition: Stable Instructions: Antibiotic Form, Clear Liquid Diet (ED), Acute Nausea and Vomiting (DC) Additional Instructions: Clear liquid diet for the next 1-3 days. Zofran as needed for nausea control. Omeprazole as directed to decrease your stomach acid and to help with some gastritis. You were unable to provide a stool sample to rule out Clostridium difficile in the emergency department. Close follow-up with your primary care physician as scheduled to see if the recommended symptomatic treatment has helped and to proceed with any additional outpatient testing as needed. You do have a Lyme study that is pending. If you have any worsening symptoms then please call or return to the emergency department. I do recommend that you start taking a probiotic as well. Patient Language: Urdu Prescriptions: New omeprazole 20 mg capsule,delayed release(DR/EC) 20 mg PO DAILY 14 Days Qty: 14 0RF ondansetron 4 mg tablet,disintegrating 4 mg PO Q8H PRN (Reason: nausea and vomiting) Qty: 14 0RF No Action doxycycline hyclate 100 mg capsule 100 mg PO BID Qty: 40 0RF Rx Instructions: take twice daily for 20 days amlodipine 5 mg tablet 10 mg PO bupropion HCl [Wellbutrin XL] 150 mg tablet extended release 24 hr 150 mg PO QAM Qty: 90 0RF trazodone 50 mg tablet 50 mg PO QHS PRN (Reason: insomnia) Qty: 90 0RF methotrexate sodium 2.5 mg tablet 2.5 mg PO WEEKLY Patient Comments: 5 tabs per week omega 4-bye-sjw-fish oil [Fish Oil] 300-1,000 mg capsule 1 cap PO DAILY acetaminophen [Tylenol Extra Strength] 500 mg tablet 500 mg PO Q6H PRN Orencia 125 mg/mL syringe 125 mg subcut WEEKLY simvastatin 20 mg tablet 20 mg PO DAILY Qty: 90 3RF allopurinol 300 mg tablet 300 mg PO DAILY Qty: 90 1RF (DME) OneTouch Verio test strips Strip See Rx Instructions .Route Qty: 100 1RF Rx Instructions: Use to check blood sugars daily furosemide 20 mg tablet 20 mg PO QAM Qty: 90 1RF hydrocodone-acetaminophen 5-325 mg tablet 1 tablet PO Q8H PRN (Reason: pain) Qty: 90 0RF metformin 500 mg tablet 500 mg PO BID Qty: 180 1RF lisinopril 40 mg tablet 40 mg PO DAILY Qty: 90 1RF Follow-up/Referrals: Charla Flower DO [Primary Care Provider] -
[2024-11-24 12:14] LABS: Hematocrit 38.1 % (42.0-52.0); Hemoglobin 13.3 g/dL (14.0-18.0); Immature Granulocyte Percent A 0.5 % (0-0.5); Lymphocytes Absolute Auto 1.74 K/mm3 (0.9-3.2); Mean Corpuscular HGB Conc 34.9 g/dl (32-36); Mean Corpuscular Hemoglobin 33.9 pg (26-34); Mean Corpuscular Volume 97.2 fl (80-100); Nucleated Red Blood Cells Absolute Auto 0.000 K/mm3 (0.0-0.012); Nucleated Red Blood Cells Perc 0.0 % (0.0-0.2); Platelet Count Result 194 k/mm3 (150-375); Red Blood Count 3.92 M/mm3 (4.6-6.20); White Blood Count 7.4 K/mm3 (4.5-10.0)
[2024-11-24 12:23] LABS: Alanine Aminotransferase 16 U/L (6-50); Albumin Level 4.3 g/dL (3.5-5.1); Alkaline Phosphatase 82 U/L (38-126); Anion Gap 12 mmol/L (4-12); Aspartate Amino Transferase 28 U/L (17-59); Bilirubin,Total 1.4 mg/dL (0.2-1.3); Blood Urea Nitrogen 18 mg/dL (9-20); CRP < 0.5 mg/dL (<1.0); Calcium 10.3 mg/dL (8.4-10.2); Carbon Dioxide 18 mmol/L (22-30); Chloride 105 mmol/L (98-107); Creatine Kinase 69 U/L (55-170); Estimated CRCL calculation 48 ml/min; Estimated Glomerular Filt Rate 40; Glucose 112 mg/dL (65-110); Potassium 4.1 mmol/L (3.4-5.0); Sodium 135 mmol/L (137-145); Total Protein 7.2 g/dL (6.3-8.2)
--- OUTSIDE RECORDS SUMMARY | 2024-11-24 12:25 | XMS_ITS | Clinical Summary ---
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[employer] Gender Identity Not on file Sexual Orientation [...] as needed Medical Devices Implanted Type Area Chain Hooker Device Identifier Shelf Expiration Date Model / Serial / Lot Metal Fragments Left: Forearm Insurance [facility] HMO REF [facility] MEDICARE Address: [facility] [address] [id number] [facility] HMO REF [facility] MEDICARE Address: [facility] [address] [place] [address] UHC MEDICARE ADVANTAGE [facility] MEDICARE Address: [facility] [address] [place] [address] [facility] MDCR HMO REF [facility] MEDICARE Address: [facility] [address] [place] [address] Care Teams Caterer'S Aide Relationship Specialty Start Date End Date Gerardo Whalen MD PCP - General 04/04/17
[2024-11-24] MEDS: LACTATED RINGERS 1,000 ML 999 ML IV CONT ×2 (12:30→13:43)
[2024-11-24 12:35] LABS: INR 1.1; Prothrombin Time 13.7 Seconds (11.1-14.7)
[2024-11-24 12:36] LABS: Partial Thromboplastin Time 28.9 Seconds (22.3-36.8)
--- NOTE | 2024-11-24 12:47 | ECG_ITS ---
Test Date: 2024-11-24 12:51:26 Measurements Intervals [place] Rate: 66 P: -14 MD: 242 QRS: -27 QRSD: 136 T: 38 QT: 391 QTc: 410 Interpretive Statements SINUS RHYTHM WITH FIRST DEGREE AV BLOCK INTRAVENTRICULAR CONDUCTION DELAY LEFT VENTRICULAR HYPERTROPHY AND ST-T CHANGE CANNOT R/O SEPTAL INFARCT, AGE INDETERMINATE CONSIDER INFERIOR INFARCT, AGE INDETERMINATE BORDERLINE ST-T WAVE ABNORMALITY- HIGH LATERAL LEADS BASELINE ARTIFACT- I, II, AVR, AVL ABNORMAL ECG No previous ECG available for comparison Electronically Signed On 11-24-2024 14:54:17 CDT by Fernando Lee D.O.
[2024-11-24 13:00] LABS: Add Urine Microscopic? YES; Appearance Urine Clear (Clear); Glucose Urine UA Negative (Negative); Leukocyte Esterase Ur Trace LEU/UL (Negative); Need Manual Microscopic Reviewed; Nitrate Urine Negative (Negative); Non Pathogenic Casts >20; Specific Grav Ur 1.023 (1.001-1.035)
[2024-11-24 13:04] LABS: Influenza A QL RT-PCR Negative (Negative); Influenza B QL RT-PCR Negative (Negative); RSV RNA, RT-PCR Negative (Negative); SARS-CoV-2 RNA PCR Negative (Negative)
[2024-11-24] MEDS: METOCLOPRAMIDE HCL INJ 10 MG/2 ML VIAL IV PUSH (14:32)
== END 2024-11-24 15:19 | disposition home or self-care (01) ==
PROVIDERS: Emergency Provider Emergency Medicine; PCP Family Medicine
DX: R11.2 Nausea with vomiting, unspecified (principal); R19.7 Diarrhea, unspecified; I95.1 Orthostatic hypotension; E11.9 Type 2 diabetes mellitus without complications; I10 Essential (primary) hypertension; E78.5 Hyperlipidemia, unspecified; M06.9 Rheumatoid arthritis, unspecified; Z20.822 Contact with and (suspected) exposure to COVID-19; A69.20 Lyme disease, unspecified
CPT/HCPCS: 36415; 70450; 80053; 81001; 82550; 85025; 85610; 85652; 85730; 86140; 86618; 87637; 93005; 96361; 96374; 99284; J2765; J7120

== ENCOUNTER 2024-12-07 09:58 | Outpatient (CLI) | payer MEDICARE, SELFPAY ==
--- OUTSIDE RECORDS SUMMARY | 2024-12-07 10:02 | XMS_ITS | Clinical Summary ---
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
--- OUTSIDE RECORDS SUMMARY | 2024-12-07 10:02 | XMS_ITS | Clinical Summary ---
Author Organization [facility] Address [address] [place] [address] Phone Care Team Providers Care Haul Driver Name Role Phone Unavailable Primary Care Provider [...] series) 2028 Insurance [facility] [id number]
--- OUTSIDE RECORDS SUMMARY | 2024-12-07 10:02 | XMS_ITS | Clinical Summary ---
Author Organization [facility] Address [address], [facility] [address] [place] [address] Phone Care Team Providers Care Finisher Special Stocks Name Role Phone Gerardo Whalen MD Primary Care Provider [phone] Medications PROAIR HFA 108 (90 Base) MCG/ACT [...] to complete this topic Insurance MEDICARE [facility] on file Care Teams Finisher Special Stocks Relationship Specialty Start Date End Date Gerardo Whalen MD [address] [address] PCP - General Family Medicine 07/15/16
--- OUTSIDE RECORDS SUMMARY | 2024-12-07 10:02 | XMS_ITS | Clinical Summary ---
Author Organization [facility] Address [address] [place] [id number] Care Team Providers Care Chronic Care Nurse Name Role Phone Gerardo Whalen MD Primary Care Provider [phone] Social History Tobacco Use Types Packs/Day Years [...] patient's age to complete this topic Insurance [facility] Care Teams Chronic Care Nurse Relationship Specialty Start Date End Date Gerardo Whalen MD [address] [place] [address] PCP - General FAMILY PRACTICE 08/03/21
== END 2024-12-07 09:59 | disposition home or self-care (01) ==
LOC: ANHAUDIO 09:58
PROVIDERS: PCP Family Medicine; Visit Provider Family Medicine
DX: G47.33 Obstructive sleep apnea (adult) (pediatric) (principal); R19.7 Diarrhea, unspecified; G62.9 Polyneuropathy, unspecified; H90.41 Sensorineural hearing loss, unilateral, right ear, with unrestricted hearing on the contralateral side
CPT/HCPCS: 92557; 92567